=== PATIENT | female | born 1955 | race Caucasian/White ===

== ENCOUNTER → 2016-11-25 | Outpatient (REF) | payer OTHER ==
[~2016-11-25] MED LIST: BIOTPOW20; CALCTAB97 PO; CIPR500T4; CLON-412 PO; EFFE150C; EFFE150C PO; FERR325T3 PO; FLAG500T; GABA-283 PO; GABA600T PO; GEMF600T PO; LISI20TA5; LOSA25TA8 PO; MAGN500C PO; MELA10TA4 PO; METF500T PO; METO10TA2; MORP15TA2 PO; MULT1TAB10 PO; MULTIVIT; OMEP20CA3 PO; OXYCO5TA PO; RELP40TA PO; RELPAX; REST0.05 OU; ROXICODONE; TRAZ50TA4 PO; VITA100066 PO; VITAMIN D; gabapentin OR; restasis OU; vitamin d OR
== END ==
LOC: M SFHCLERA 13:21
PROVIDERS: ATTEND Physician Assistant
DX: A09 Infectious gastroenteritis and colitis, unspecified (principal)

== ENCOUNTER → 2016-11-25 | Outpatient (CLI) | payer BC, OTHER ==
--- NOTE | 2016-11-25 17:00 | REP ---
CHEST, TWO VIEWS: Two views of the chest are performed and compared to prior study of 05/04/2015. There is significant elevation of the right hemidiaphragm unchanged. There is mild bibasilar fibro atelectatic change. There is no acute infiltrate. The heart is not significantly enlarged. The mediastinal silhouette is unchanged. There are bilateral Garcia rods present. There are multiple pedicle screws. IMPRESSION: No acute infiltrate. Signed by Romero Doyle MD 11/26/2016 05:10 P
== END ==
LOC: M LRY 12:32
PROVIDERS: ATTEND Physician Assistant
DX: R05 Cough (principal)

== ENCOUNTER 2017-03-19 18:31 | Emergency (ER) | payer BC, OTHER ==
[~2017-03-19] VITALS: Ht 165.1 cm; Wt 79.8 kg
[~2017-03-19 18:31] MED LIST changes: -ATOR1TAB19 PO; -OMEP40CA2 PO; -TIZA2CAP3 PO
[2017-03-19] MEDS ORDERED: ATOR1TAB19 PO (18:50)
[2017-03-19] MEDS ORDERED: TIZA2CAP3 PO (18:50)
[2017-03-19] MEDS ORDERED: OMEP40CA2 PO (18:50)
[2017-03-19] MEDS ORDERED: cloNIDine 0.1 MG TAB PO ONE (19:30)
[2017-03-19 19:55] VITALS: BP 188/90
[2017-03-19 20:24] LABS: BASO % 0.5 % (0.0-1.0); EOS # 0.4 K/mm3 (0.0-0.50); LARGE UNSTAINED CELL # 0.1 K/mm3 (0.0-0.4); LARGE UNSTAINED CELL % 1.6 % (0.0-4.0); LYMPH # 2.1 K/mm3 (1.5-4.5); LYMPH % 23.8 % (24.0-44.0); MEAN CORPUSCULAR HEMOGLOBIN 30.6 pg (27.0-33.0); MEAN CORPUSCULAR VOLUME 85.1 fl (80.0-96.0); MONO # 0.5 K/mm3 (0.0-0.8); MONO % 5.5 % (0.0-5.0); NEUTROPHILS # 5.5 K/mm3 (1.8-7.7); NEUTROPHILS % 63.7 % (36.0-66.0); PLATELET COUNT, AUTOMATED 270 k/mm3 (150-450); RED CELL DISTRIBUTION WIDTH 13.9 % (11.5-14.5); WHITE BLOOD COUNT 8.7 K/mm3 (4.0-10.0)
[2017-03-19 20:36] LABS: ANION GAP 7 MEQ/L (8-16); BLOOD UREA NITROGEN 16 MG/DL (7-18); CARBON DIOXIDE LEVEL 30 MEQ/L (21-32); CHLORIDE LEVEL 105 MEQ/L (98-107); CREATININE FOR GFR 0.77 MG/DL (0.55-1.02); GLOMERULAR FILTRATION RATE > 60.0 (>51); GLUCOSE, FASTING 105 MG/DL (70-105); POTASSIUM SERUM 4.2 MEQ/L (3.5-5.1); SODIUM LEVEL 142 MEQ/L (136-145)
--- NOTE | 2017-03-19 21:16 | REP ---
Clinical: Hypertensive emergency. Comparison: 09/10/2007. Findings: Age-related changes are appreciated including dense extra-axial parafalcine calcifications. The ventricles and sulci are symmetric. Doyle-white differentiation is maintained. There is no evidence for acute intracranial hemorrhage, mass/mass effect, pathology or infarction. No extra-axial fluid collection. Calvarium is intact. Paranasal sinuses and mastoid air cells are clear. Impression: Age related changes. No acute intracranial hemorrhage, infarction, or mass/mass effect. Signed by Johnathon Alba MD 03/19/2017 09:07 P
[2017-03-19 21:52] VITALS: BP 147/74
--- NOTE | 2017-03-20 04:29 | REP ---
Clinical: Chest pain . Comparison: 11/25/2016 . Findings: The mediastinum and cardiac silhouette are stable and within normal limits for portable technique. Garcia rods in stable position. The lung martinez are clear without acute consolidation, effusion, or pneumothorax. Skeletal structures are intact. Impression: Stable portable chest x-ray. No acute cardiopulmonary process. Signed by Johnathon Alba MD 03/20/2017 04:20 A
--- NOTE | 2017-03-21 08:38 | ECGEPIP ---
Stationary ECG Study [facility] - ED Test Date: 2017-03-19 Pat Name: RAYNE MANZO Department: Room: - Gender: F Outside Upholsterer: ruth ann : 1955 Requested By: AMARI Arredondo Order Number: [id number] Reading MD: Iliana Fischer Measurements Intervals [place] Rate: 67 P: 9 VT: 136 QRS: -8 QRSD: 82 T: 11 QT: 379 QTc: 402 Interpretive Statements SINUS RHYTHM MODERATE VOLTAGE CRITERIA FOR LVH, CONSIDER NORMAL VARIANT NSTTW ABNORMALITY SIMILAR 09/05/16 Electronically Signed On 03-21-2017 8:37:53 EDT by Iliana Fischer
== END 2017-03-19 21:54 | disposition home or self-care (01) ==
LOC: M ED 19:30
DX: I10 Essential (primary) hypertension (principal); R07.89 Other chest pain; Z79.899 Other long term (current) drug therapy; Z79.84 Long term (current) use of oral hypoglycemic drugs; Z87.891 Personal history of nicotine dependence; E78.00 Pure hypercholesterolemia, unspecified; Z98.84 Bariatric surgery status; E11.9 Type 2 diabetes mellitus without complications; M54.9 Dorsalgia, unspecified

== ENCOUNTER → 2017-03-19 | Outpatient (REF) | payer OTHER ==
[~2017-03-19] MED LIST changes: +ATOR1TAB19 PO; +OMEP40CA2 PO; +OXYC-517 PO; -OXYCO5TA PO; +TIZA2CAP3 PO
== END ==
LOC: M SFHCLERA 17:29
PROVIDERS: ATTEND Nurse Practitioner Family
DX: R30.0 Dysuria (principal)

== ENCOUNTER 2017-03-25 23:06 | Emergency (ER) | payer BC, OTHER ==
[~2017-03-25] VITALS: Ht 165.1 cm; Wt 80.7 kg
[~2017-03-25 23:06] MED LIST changes: +ATOR1TAB19 PO; +OMEP40CA2 PO; +TIZA2CAP3 PO
[2017-03-25] MEDS ORDERED: CIPR500T89 PO (23:45)
[2017-03-26] LABS: BASO % 0.7 % (0.0-1.0); EOS # 0.3 K/mm3 (0.0-0.50); EOS % 3.6 % (0.0-3.0); LARGE UNSTAINED CELL # 0.1 K/mm3 (0.0-0.4); LARGE UNSTAINED CELL % 1.6 % (0.0-4.0); LYMPH # 2.7 K/mm3 (1.5-4.5); LYMPH % 34.4 % (24.0-44.0); MEAN CORPUSCULAR HEMOGLOBIN 28.1 pg (27.0-33.0); MEAN CORPUSCULAR HGB CONC 33.2 g/dl (32.0-36.5); MEAN CORPUSCULAR VOLUME 84.5 fl (80.0-96.0); MONO # 0.4 K/mm3 (0.0-0.8); MONO % 5.1 % (0.0-5.0); NEUTROPHILS # 4.2 K/mm3 (1.8-7.7); NEUTROPHILS % 54.5 % (36.0-66.0); PLATELET COUNT, AUTOMATED 291 k/mm3 (150-450); RED CELL DISTRIBUTION WIDTH 13.7 % (11.5-14.5); WHITE BLOOD COUNT 7.6 K/mm3 (4.0-10.0)
[2017-03-26] MEDS ORDERED: ASPIRIN 325 MG TAB PO ONE
[2017-03-26] MEDS ORDERED: MORPHINE 2 MG/ML 1ML SYRINGE IV ONE
[2017-03-26 00:09] LABS: INR 1.01
[2017-03-26 00:26] LABS: ANION GAP 5 MEQ/L (8-16); BLOOD UREA NITROGEN 14 MG/DL (7-18); CALCIUM LEVEL 9.4 MG/DL (8.5-10.1); CARBON DIOXIDE LEVEL 33 MEQ/L (21-32); CHLORIDE LEVEL 101 MEQ/L (98-107); CREATININE FOR GFR 0.86 MG/DL (0.55-1.02); GLOMERULAR FILTRATION RATE > 60.0 (>51); GLUCOSE, FASTING 113 MG/DL (70-105); POTASSIUM SERUM 4.7 MEQ/L (3.5-5.1); SODIUM LEVEL 139 MEQ/L (136-145)
--- NOTE | 2017-03-26 01:50 | REPUSA ---
CLINICAL HISTORY: Chest tightness. TECHNIQUE: Multiple axial CT images were obtained through the thorax without IV contrast material. COMMENTS: Elevation of the right hemidiaphragm. Bilateral peribronchial interstitial thickening suggestive of bronchitis. Chronic increase in dorsal kyphosis. Moderate osteopenia of the visualized bones. Unremarkable metallic hardware of the thoracic spine. Bilateral basilar atelectatic pulmonary changes. There is no evidence of pleural or parenchymal-based mass. There are no pleural effusions. There is n o evidence of hilar or mediastinal lymphadenopathy. The heart and great vessels are within normal basilio its. The visualized portions of the liver are of uniform attenuation without mass or defect. There is no i ntra or extrahepatic biliary ductal dilatation. The spleen is unremarkable. The visualized pancreas i s of normal contour and attenuation characteristics. There is no evidence of adrenal mass. The visual ized portions of the kidneys present no abnormalities. The bony structures are free of lytic or blastic lesions. Mildly dilated extrahepatic biliary tree. IMPRESSION: Bronchitis. Basilar atelectatic pulmonary changes. Elevation of the right hemidiaphragm. Increased dorsal kyphosis. Unremarkable metallic hardware of the thoracic spine. Thank you for your kind referral of this patient.
--- NOTE | 2017-03-26 02:04 | REP ---
Clinical: Chest pain. Comparison: 03/19/2017. Findings: Garcia rods in stable position. Elevation of the right hemidiaphragm is unchanged. Mediastinum and cardiac silhouette are within normal limits. Visualized aerated lung martinez are clear. Impression: Stable chest x-ray. No acute cardiopulmonary process appreciated. Signed by Johnathon Alba MD 03/26/2017 01:56 A
[2017-03-26 04:44] VITALS: BP 109/58
[2017-03-26] MEDS ORDERED: ASPI81TA85 PO (04:46)
--- NOTE | 2017-03-26 05:55 | ECGEPIP ---
Stationary ECG Study [facility] - ED Test Date: 2017-03-25 Pat Name: RAYNE MANZO Department: Room: - Gender: F Desulphurizer Operator: ruth ann : 1955 Requested By: LANI HERNANDEZ Order Number: [id number] Reading MD: Gómez Otto Measurements Intervals [place] Rate: 74 P: -1 [place]: 128 QRS: -9 QRSD: 92 T: 10 QT: 400 QTc: 445 Interpretive Statements SINUS RHYTHM MODERATE VOLTAGE CRITERIA FOR LVH, CONSIDER NORMAL VARIANT SIMILAR TO 03/19/17 Electronically Signed On 03-26-2017 5:55:35 EDT by Gómez Otto
--- NOTE | 2017-03-26 10:11 | ECGEPIP ---
Stationary ECG Study [facility] - ED Test Date: 2017-03-26 Pat Name: RAYNE MANZO Department: Room: - Gender: F Occupational Health Nurse: ruth ann : 1955 Requested By: LANI HERNANDEZ Order Number: [id number] Reading MD: Iliana Fischer Measurements Intervals [place] Rate: 59 P: 0 [place]: 144 QRS: -9 QRSD: 79 T: -7 QT: 451 QTc: 449 Interpretive Statements SINUS BRADYCARDIA MINIMAL VOLTAGE CRITERIA FOR LVH, CONSIDER NORMAL VARIANT NSTTW ABNORMALITY DECREASED RATE 03/25/17 Electronically Signed On 03-26-2017 10:11:05 EDT by Iliana Fischer
== END 2017-03-26 04:57 | disposition home or self-care (01) ==
LOC: M ED 23:23
DX: J20.9 Acute bronchitis, unspecified (principal); R07.89 Other chest pain; I10 Essential (primary) hypertension; F32.9 Major depressive disorder, single episode, unspecified; Z79.899 Other long term (current) drug therapy; Z88.6 Allergy status to analgesic agent; Z88.8 Allergy status to other drugs, medicaments and biological substances; Z91.040 Latex allergy status; Z91.041 Radiographic dye allergy status

== ENCOUNTER → 2017-03-31 | Outpatient (REF) | payer OTHER ==
[~2017-03-31] MED LIST changes: +ASPI81TA85 PO; +CIPR500T89 PO
[2017-03-31 15:52] LABS: BACTERIA, URINE SMALL AMOUNT; MICROSCOPIC EXAM PERFORMED; SQUAMOUS EPITHELIAL CELL URINE SMALL AMOUNT /hpf (SMALL AMT)
[2017-03-31 20:13] LABS: HYALINE CAST, URINE NONE SEEN /lpf (0-1)
== END ==
LOC: M SMT 12:51
PROVIDERS: ATTEND Specialist
DX: N39.0 Urinary tract infection, site not specified (principal)

== ENCOUNTER 2017-06-20 21:43 | Emergency (ER) | payer BC, OTHER ==
[~2017-06-20] VITALS: Ht 165.1 cm; Wt 76.4 kg
[~2017-06-20 21:43] MED LIST changes: +CIPR-249 PO; -CIPR500T89 PO; -METF500T PO; +METF500T13 PO; +TRAZ50TA11 PO; -TRAZ50TA4 PO
[2017-06-20] MEDS ORDERED: AMLO5TAB2 PO (21:56)
[2017-06-20] MEDS ORDERED: FORT600S SC (21:56)
[2017-06-20] MEDS ORDERED: CARV6.25 PO (21:56)
[2017-06-20] MEDS ORDERED: ACETAMINOPH W/CODEINE #3 TAB UD PO ONE (22:15)
[2017-06-20] MEDS ORDERED: PERCOCET 5MG/325MG TAB PO ONE (23:45)
[2017-06-21 00:28] VITALS: BP 107/53
--- NOTE | 2017-06-21 09:39 | REP ---
REASON: Pain after trauma. A sunrise view could not be obtained. COMPARISON: 10/03/2012 There are chronic changes status quo. There is no acute fracture. Signed by Ryan Vargas DO 06/21/2017 10:16 A
--- NOTE | 2017-06-21 09:40 | REP ---
REASON: Pain after trauma. COMPARISON: 03/15/2011 There is a nondisplaced distal fibular fracture with associated soft tissue swelling. The bones are demineralized. There are plantar and retrocalcaneal heel spurs. IMPRESSION: Distal fibular fracture and other findings as described above. Signed by Ryan Vargas DO 06/21/2017 10:16 A
--- NOTE | 2017-06-21 09:42 | REP ---
REASON: Pain after trauma. COMPARISON: 06/14/2015 There are chronic changes status quo. The bones are demineralized. There is no acute fracture. Signed by Ryan Vargas DO 06/21/2017 10:16 A
--- NOTE | 2017-06-21 09:43 | REP ---
REASON: Pain after trauma. COMPARISON: 03/15/2011 The bones are demineralized. There are degenerative changes. There are plantar and retrocalcaneal heel spurs. There is no acute fracture. Signed by Ryan Vargas DO 06/21/2017 10:16 A
== END 2017-06-21 00:30 | disposition home or self-care (01) ==
LOC: M ED 21:43
DX: S82.831A Other fracture of upper and lower end of right fibula, initial encounter for closed fracture (principal); W19.XXXA Unspecified fall, initial encounter; Y92.9 Unspecified place or not applicable; Y93.9 Activity, unspecified; Y99.9 Unspecified external cause status; M85.872 Other specified disorders of bone density and structure, left ankle and foot; M77.31 Calcaneal spur, right foot; M85.861 Other specified disorders of bone density and structure, right lower leg; M85.871 Other specified disorders of bone density and structure, right ankle and foot; M77.32 Calcaneal spur, left foot; Z79.82 Long term (current) use of aspirin; Z79.899 Other long term (current) drug therapy; Z79.84 Long term (current) use of oral hypoglycemic drugs; Z88.1 Allergy status to other antibiotic agents; Z88.6 Allergy status to analgesic agent; Z88.8 Allergy status to other drugs, medicaments and biological substances; Z91.041 Radiographic dye allergy status; Z91.040 Latex allergy status

== ENCOUNTER → 2018-01-22 | Outpatient (CLI) | payer MEDICARE, OTHER, BC ==
[2018-01-22 16:59] LABS: BASO % 0.8 % (0.0-1.0); EOS # 0.2 10^3/uL (0.0-0.50); EOS % 3.3 % (0.0-3.0); HEMATOCRIT 35.8 % (36.0-47.0); HEMOGLOBIN 11.8 g/dl (12.0-16.0); IMMATURE GRANULOCYTE % 0.4 % (0-3.0); LYMPH # 1.8 10^3/uL (1.5-4.5); LYMPH % 37.2 % (24.0-44.0); MEAN CORPUSCULAR HEMOGLOBIN 28.8 pg (27.0-33.0); MEAN CORPUSCULAR VOLUME 87.3 fl (80.0-96.0); MONO # 0.4 10^3/uL (0.0-0.8); MONO % 7.8 % (0.0-5.0); NEUTROPHILS # 2.5 10^3/uL (1.8-7.7); NEUTROPHILS % 50.5 % (36.0-66.0); PLATELET COUNT, AUTOMATED 294 10^3/uL (150-450); RED CELL DISTRIBUTION WIDTH 13.2 % (11.5-14.5); WHITE BLOOD COUNT 4.9 10^3/uL (4.0-10.0)
[2018-01-22 17:37] LABS: FERRITIN 71 NG/ML (8-252); IRON (FE) 71 UG/DL (50-170); PERCENT SATURATION 19.7 % (13.2-45.0); TOTAL IRON BINDING CAPACITY 360 UG/DL (250-450)
[2018-01-22 17:40] LABS: FOLATE > 24.0 NG/ML; VITAMIN B12 LEVEL > 2000 PG/ML
== END ==
LOC: M WUC 11:00
DX: D64.9 Anemia, unspecified (principal)
CPT/HCPCS: 82746

== ENCOUNTER → 2018-05-09 | Outpatient (CLI) | payer MEDICARE, OTHER, BC | LOC: M LRY 15:12 | DX: J98.01 Acute bronchospasm (principal) | CPT/HCPCS: 71046; 94640 ==

== ENCOUNTER → 2018-08-27 | Outpatient (CLI) | payer MEDICARE, OTHER, BC | LOC: M LAB 09:25 | DX: R10.11 Right upper quadrant pain (principal); R19.7 Diarrhea, unspecified | CPT/HCPCS: 36415 ==

== ENCOUNTER 2018-12-12 23:27 | Emergency (ER) | payer MEDICARE, BC, OTHER ==
[~2018-12-12] VITALS: Ht 165.1 cm; Wt 70.5 kg
[~2018-12-12 23:27] MED LIST changes: +AMLO5TAB6 PO; +CARV6.25 PO; -EFFE150C PO; +EFFE150C2 PO; +FENT12PA TOP; +FORT600S SC; -GABA-283 PO; +GABA-845 PO; -GABA600T PO; +GABA600T4 PO; -GEMF600T PO; +GEMF600T5 PO; +LOSA25TA14 PO; -LOSA25TA8 PO; +NORCOTAB PO; +TIZA2CAP PO; -TIZA2CAP3 PO; +TRAZ-160 PO; -TRAZ50TA11 PO
--- NOTE | 2018-12-13 00:03 | REPVR ---
EXAM: CT Head Without Contrast EXAM DATE/TIME: 12/12/2018 11:44 PM CLINICAL HISTORY: 63 years old, female; Injury or trauma; Fall; Initial encounter; Concussion / head injury; Additional info: Tr TECHNIQUE: Axial computed tomography images of the head/brain without contrast. All CT scans at this facility use at least one of these dose optimization techniques: automated exposure control; mA and/or kV adjustment per patient size (includes targeted exams where dose is matched to clinical indication); or iterative reconstruction. COMPARISON: CT Head without contrast 11/22/2018 3:27 PM FINDINGS: Brain: There is no evidence of infarct, falk-white matter differentiation is preserved. There is no hemorrhage or extra-axial collection. There is no mass. Ventricles: There is no hydrocephalus. Bones/joints: Normal. No acute fracture. Sinuses: Normal as visualized. No acute sinusitis. Mastoid air cells: Normal as visualized. No mastoid effusion. Soft tissues: Normal. Vasculature: There is right temporal attenuation artifact. IMPRESSION: No intracranial injury or lesion and no change from prior scan. Electronically signed by: Kade Lee On 12/13/2018 00:03:18 AM
--- NOTE | 2018-12-13 00:08 | REPVR ---
EXAM: CT Cervical Spine Without Contrast EXAM DATE/TIME: 12/12/2018 11:44 PM CLINICAL HISTORY: 63 years old, female; Injury or trauma; Fall; Initial encounter; Concussion /head injury; Additional info: Tr TECHNIQUE: Axial computed tomography images of the cervical spine without intravenous contrast. All CT scans at this facility use at least one of these dose optimization techniques: automated exposure control; mA and/or kV adjustment per patient size (includes targeted exams where dose is matched to clinical indication); or iterative reconstruction. Coronal and sagittal reformatted images were created and reviewed. COMPARISON: No relevant prior studies available. FINDINGS: Vertebrae: There is no fracture. Vertebral alignment is normal. A posterior fusion in the upper thoracic spine is partly visualized with spinal rods and screws. Discs/Spinal canal/Neural foramina: There is no central or foraminal stenosis. There is no evidence of disc disease in the cervical spine. Soft tissues: Unremarkable. Lungs: Lung apices are normal. IMPRESSION: No fracture. Electronically signed by: Kade Lee On 12/13/2018 00:08:51 AM
[2018-12-13] MEDS ORDERED: NORCO, ANEXSIA 5/325MG TABLET (HYDROcodone/ACETAMINOPHEN) PO ONE (00:15)
[2018-12-13 01:00] VITALS: BP 96/55
--- NOTE | 2018-12-13 09:27 | REP ---
PELVIS RIGHT HIP: Three views. HISTORY: Trauma. FINDINGS: The patient is status post right hip arthroplasty. There is diffuse osteopenia. Lumbosacral spine fusion hardware is noted in place bilaterally. Laminectomy is visible at L5 at the top of the imaging field of view. There is peritrochanteric spurring bilaterally. No fracture is seen. IMPRESSION: Status post lumbosacral spine fusion and right hip arthroplasty. No traumatic abnormality. Electronically Signed by Miguel Rivera MD 12/13/2018 10:39 A
== END 2018-12-13 01:43 | disposition home or self-care (01) ==
LOC: M ED 23:27
DX: S16.1XXA Strain of muscle, fascia and tendon at neck level, initial encounter (principal); S76.011A Strain of muscle, fascia and tendon of right hip, initial encounter; S00.81XA Abrasion of other part of head, initial encounter; W10.8XXA Fall (on) (from) other stairs and steps, initial encounter; Y92.018 Other place in single-family (private) house as the place of occurrence of the external cause; I10 Essential (primary) hypertension; E11.9 Type 2 diabetes mellitus without complications; K21.9 Gastro-esophageal reflux disease without esophagitis; E78.5 Hyperlipidemia, unspecified; Z79.899 Other long term (current) drug therapy; Z79.84 Long term (current) use of oral hypoglycemic drugs; Z79.82 Long term (current) use of aspirin; Z88.8 Allergy status to other drugs, medicaments and biological substances; Z91.040 Latex allergy status; Z91.041 Radiographic dye allergy status

== ENCOUNTER → 2018-12-16 | Outpatient (CLI) | payer MEDICARE, BC, OTHER | LOC: M LAB 12:52 | PROVIDERS: ATTEND Nurse Practitioner Family | DX: K50.00 Crohn's disease of small intestine without complications (principal); R94.5 Abnormal results of liver function studies; K76.0 Fatty (change of) liver, not elsewhere classified ==

== ENCOUNTER 2019-02-10 22:33 | Emergency (ER) | payer MEDICARE, BC, OTHER ==
[~2019-02-10] VITALS: Ht 165.1 cm; Wt 70.5 kg
[~2019-02-10 22:33] MED LIST changes: +FENT12DI12 TOP; -FENT12PA TOP; +HYDR-3715 PO; -NORCOTAB PO
[2019-02-10] MEDS ORDERED: NALOXONE INJ 0.4 MG/1 ML VIAL (J2310) IV STA ×2 (22:50→23:48)
[2019-02-10] MEDS ORDERED: NS 1,000 ML IV ONE (23:00)
[2019-02-10 23:37] LABS: BASO # 0.1 10^3/uL (0.0-0.2); BASO % 0.8 % (0.0-1.0); EOS # 0.2 10^3/uL (0.0-0.50); EOS % 2.7 % (0.0-3.0); HEMATOCRIT 35.1 % (36.0-47.0); HEMOGLOBIN 11.2 g/dl (12.0-15.5); LYMPH # 2.4 10^3/uL (1.5-4.5); LYMPH % 33.2 % (24.0-44.0); MEAN CORPUSCULAR HEMOGLOBIN 27.9 pg (27.0-33.0); MEAN CORPUSCULAR HGB CONC 31.9 g/dl (32.0-36.5); MEAN CORPUSCULAR VOLUME 87.5 fl (80.0-96.0); MONO # 0.5 10^3/uL (0.0-0.8); MONO % 6.4 % (0.0-5.0); NEUTROPHILS # 4.1 10^3/uL (1.8-7.7); NEUTROPHILS % 56.2 % (36.0-66.0); PLATELET COUNT, AUTOMATED 251 10^3/uL (150-450); RED BLOOD COUNT 4.01 10^6/uL (4.00-5.40); WHITE BLOOD COUNT 7.4 10^3/uL (4.0-10.0)
[2019-02-11 00:13] LABS: ALBUMIN 3.5 GM/DL (3.2-5.2); ALT/SGPT 25 U/L (12-78); BILIRUBIN,DIRECT < 0.1 MG/DL (0.0-0.2); BILIRUBIN,TOTAL 0.2 MG/DL (0.2-1.0); BLOOD UREA NITROGEN 29 MG/DL (7-18); CALCIUM LEVEL 8.7 MG/DL (8.8-10.2); CARBON DIOXIDE LEVEL 27 MEQ/L (21-32); CHLORIDE LEVEL 104 MEQ/L (98-107); CPK CREATINE PHOSPHOKINASE 57 U/L (26-192); CREATININE FOR GFR 1.44 MG/DL (0.55-1.30); GLOMERULAR FILTRATION RATE 39.4 (>45); GLUCOSE, FASTING 146 MG/DL (70-100); MB/CK RELATIVE INDEX 7.19 (< OR =4); POTASSIUM SERUM 4.2 MEQ/L (3.5-5.1); SODIUM LEVEL 141 MEQ/L (136-145); TOTAL PROTEIN 6.6 GM/DL (6.4-8.2); TROPONIN I < 0.02 NG/ML (< 0.10)
[2019-02-11] MEDS ORDERED: NALOXONE INJ 2 MG/2 ML SYRINGE (J2310) IM STA (00:51)
[2019-02-11] MEDS ORDERED: NS 1,000 ML IV ONE (01:00)
[2019-02-11 02:06] VITALS: BP 98/53
--- NOTE | 2019-02-11 06:39 | ECGEPIP ---
Stationary ECG Study [facility] - ED Test Date: 2019-02-10 Pat Name: RAYNE MANZO Department: Room: - Gender: F Hog Driver: GT : 1955 Requested By: LANI HERNANDEZ Order Number: [id number] Reading MD: Gómez Otto Measurements Intervals [place] Rate: 80 P: 0 SC: 159 QRS: -12 QRSD: 94 T: -1 QT: 412 QTc: 477 Interpretive Statements SINUS RHYTHM MINIMAL VOLTAGE CRITERIA FOR LVH, CONSIDER NORMAL VARIANT NSTTW ABNORMALITIES SIMILAR TO 11/22/18 Electronically Signed On 02-11-2019 6:38:42 EDT by Gómez Otto
== END 2019-02-11 02:08 | disposition home or self-care (01) ==
LOC: M ED 22:33
DX: T40.601A Poisoning by unspecified narcotics, accidental (unintentional), initial encounter (principal); X58.XXXA Exposure to other specified factors, initial encounter; Y92.89 Other specified places as the place of occurrence of the external cause; I95.2 Hypotension due to drugs; Z91.041 Radiographic dye allergy status; Z88.8 Allergy status to other drugs, medicaments and biological substances; Z91.040 Latex allergy status; Z79.899 Other long term (current) drug therapy; Z79.82 Long term (current) use of aspirin
CPT/HCPCS: 36415; 80048; 80076; 82550; 82553; 84443; 84484; 85025; 93005; 93041; 94760; 96361; 96372; 96374; 96376; 99285; J2310

== ENCOUNTER → 2020-09-24 | Outpatient (REF) | payer MEDICARE, BC, OTHER ==
[~2020-09-24] MED LIST changes: +AMLO1TAB24 PO; -AMLO5TAB6 PO; -ASPI81TA85 PO; +ASPI81TA86 PO; +OMEP1CAP73 PO; -OMEP20CA3 PO; -OMEP40CA2 PO; +OMEP40CA97 PO; -TRAZ-160 PO; +TRAZ-252 PO
== END ==
LOC: M LAB REF 16:39
PROVIDERS: ATTEND Physician Assistant
DX: R10.32 Left lower quadrant pain (principal)

== ENCOUNTER → 2021-01-05 | Outpatient (CLI) | payer MEDICARE, BC, OTHER | LOC: M LABSMTC 10:11 | PROVIDERS: ATTEND Nurse Practitioner Family | DX: Z01.812 Encounter for preprocedural laboratory examination (principal); Z20.822 Contact with and (suspected) exposure to COVID-19; M51.24 Other intervertebral disc displacement, thoracic region ==

== ENCOUNTER 2021-02-01 13:54 | Emergency (ER) | payer MEDICARE, BC, OTHER ==
[~2021-02-01] VITALS: Ht 160 cm; Wt 82.0 kg
[2021-02-01 14:31] LABS: BASO % 0.6 % (0.0-1.0); EOS # 0.3 10^3/uL (0.0-0.5); EOS % 4.2 % (0.0-3.0); HEMATOCRIT 32.3 % (36.0-47.0); LYMPH # 1.7 10^3/uL (1.5-5.0); LYMPH % 25.5 % (24.0-44.0); MEAN CORPUSCULAR HEMOGLOBIN 24.8 pg (27.0-33.0); MEAN CORPUSCULAR VOLUME 80.1 fl (80.0-96.0); MONO # 0.5 10^3/uL (0.0-0.8); MONO % 7.2 % (2.0-8.0); NEUTROPHILS # 4.1 10^3/uL (1.5-8.5); NEUTROPHILS % 62.2 % (36.0-66.0); PLATELET COUNT, AUTOMATED 288 10^3/uL (150-450); RED BLOOD COUNT 4.03 10^6/uL (4.00-5.40); WHITE BLOOD COUNT 6.6 10^3/uL (4.0-10.0)
[2021-02-01 14:42] LABS: INR 0.91; PROTHROMBIN TIME 12.4 SECONDS (12.5-14.3)
--- NOTE | 2021-02-01 14:47 | REP ---
INDICATION: blurred vision COMPARISON: 12/12/2018 TECHNIQUE: Axial noncontrast images from the skull base to the thoracic inlet with coronal reformations. This CT examination was performed using the following dose reduction techniques: Automated exposure control, adjustment of mA and/or kv according to the patient's size, and use of iterative reconstruction technique. FINDINGS: Age-related atrophy and microvascular ischemic changes are again appreciated and similar to prior examination. The ventricles and sulci are symmetric. Doyle-white differentiation is maintained. There is no evidence for acute intracranial hemorrhage, mass/mass effect, pathology or infarction. No extra-axial fluid collection. Calvarium is intact. Paranasal sinuses and mastoid air cells are clear. IMPRESSION: Age related atrophy and microvascular ischemic changes similar to prior examination. No acute intracranial hemorrhage, infarction, or mass/mass effect. <Electronically signed by Johnathon Alba > 02/01/21 [id number]
[2021-02-01] MEDS ORDERED: LOSA50TA88 PO (15:01)
[2021-02-01] MEDS ORDERED: METF10004 PO (15:01)
[2021-02-01] MEDS ORDERED: TRUL0.5I SC (15:01)
[2021-02-01] MEDS ORDERED: LOMO2.5T PO (15:01)
[2021-02-01] MEDS ORDERED: OMEP40CA97 PO (15:01)
[2021-02-01] MEDS ORDERED: VITAE40CA PO (15:01)
[2021-02-01] MEDS ORDERED: ROPI2TAB24 PO (15:01)
[2021-02-01] MEDS ORDERED: potassium PO (15:01)
[2021-02-01] MEDS ORDERED: FAMO20TA PO (15:01)
[2021-02-01] MEDS ORDERED: BACL10TA2 PO (15:01)
[2021-02-01] MEDS ORDERED: RECL5INJ2 IV (15:01)
[2021-02-01] MEDS ORDERED: COLE1TAB PO (15:01)
[2021-02-01] MEDS ORDERED: CALCCAP4 PO (15:01)
[2021-02-01] MEDS ORDERED: PREG100CA PO (15:01)
[2021-02-01] MEDS ORDERED: PENT500C PO (15:01)
[2021-02-01] MEDS ORDERED: HYOS0.1259 PO (15:01)
[2021-02-01] MEDS ORDERED: BLAC1CAP2 PO (15:01)
[2021-02-01] MEDS ORDERED: TRAZ-252 PO (15:01)
[2021-02-01] MEDS ORDERED: CYMB60CA3 PO (15:01)
[2021-02-01] MEDS ORDERED: OXYC-517 PO (15:01)
[2021-02-01 15:09] LABS: BLOOD UREA NITROGEN 20 MG/DL (7-18); CALCIUM LEVEL 8.9 MG/DL (8.8-10.2); CARBON DIOXIDE LEVEL 28 MEQ/L (21-32); CHLORIDE LEVEL 109 MEQ/L (98-107); CK-MB VALUE MASS 5.6 NG/ML (<3.6); CPK CREATINE PHOSPHOKINASE 49 U/L (26-192); CREATININE FOR GFR 0.88 MG/DL (0.55-1.30); GLOMERULAR FILTRATION RATE > 60.0 (>45); GLUCOSE, FASTING 125 MG/DL (70-100); MB/CK RELATIVE INDEX 11.43 (< OR =4); POTASSIUM SERUM 4.4 MEQ/L (3.5-5.1); SODIUM LEVEL 140 MEQ/L (136-145); TROPONIN I < 0.02 NG/ML (< 0.10)
[2021-02-01] MEDS ORDERED: LOSA25TA14 PO (16:33)
[2021-02-01 16:53] VITALS: BP 129/58
--- NOTE | 2021-02-01 18:52 | ECGEPIP ---
[facility] - ED Test Date: 2021-02-01 Pat Name: RAYNE MANZO Department: Room: - Gender: Female Reel Stripper: KISHORE : 1955 Requested By: Dannie Frausto Order Number: [id number] Reading MD: Iliana Fischer Measurements Intervals [place] Rate: 78 P: 3 MD: 134 QRS: -12 QRSD: 80 T: 16 QT: 376 QTc: 428 Interpretive Statements Normal sinus rhythm NSTTW abnormalities similar 02/10/19 Electronically Signed on 02-01-2021 18:51:57 EST by Iliana Fischer
== END 2021-02-01 17:14 | disposition home or self-care (01) ==
LOC: M ED 13:54
DX: I10 Essential (primary) hypertension (principal); H53.9 Unspecified visual disturbance; E11.9 Type 2 diabetes mellitus without complications; K21.9 Gastro-esophageal reflux disease without esophagitis; G89.29 Other chronic pain; Z98.84 Bariatric surgery status; G31.1 Senile degeneration of brain, not elsewhere classified; I67.82 Cerebral ischemia; Z79.82 Long term (current) use of aspirin; Z79.84 Long term (current) use of oral hypoglycemic drugs; Z79.899 Other long term (current) drug therapy; Z91.040 Latex allergy status; Z91.041 Radiographic dye allergy status; Z88.6 Allergy status to analgesic agent; Z88.8 Allergy status to other drugs, medicaments and biological substances

== ENCOUNTER → 2021-02-14 | Outpatient (CLI) | payer MEDICARE, BC, OTHER ==
[~2021-02-14] MED LIST changes: +BACL10TA2 PO; +BLAC1CAP2 PO; +CALCCAP4 PO; +COLE1TAB PO; +CYMB60CA3 PO; +FAMO20TA PO; +HYOS0.1259 PO; +LOMO2.5T PO; +LOSA50TA88 PO; +METF10004 PO; +PENT500C PO; +PREG100CA PO; +RECL5INJ2 IV; +ROPI2TAB24 PO; +TRUL0.5I SC; +VITAE40CA PO; +potassium PO
--- NOTE | 2021-02-14 16:05 | REP ---
INDICATION: ESSENTIAL PRIMARY HYPERTENSION COMPARISON: None. TECHNIQUE: Real-time ultrasound evaluation and duplex Doppler interrogation of the extracranial carotid vasculature is performed. FINDINGS: There is mild plaquing and narrowing in both carotid bulbs extending into the internal and external carotid arteries. Luminal narrowing is less than 50%. There is no evidence of hemodynamically significant stenosis of either internal carotid artery. Normal flow velocities are seen. The vertebral arteries demonstrate normal direction of flow. RIGHT LEFT Peak systolic velocity ICA 88 cm/s 111 cm/s End diastolic velocity ICA 35 cm/s 44 cm/s Peak systolic velocity CCA 83 cm/s 91cm/s Peak systolic velocity ECA 81 cm/s 62 cm/s ICA/CCA ratio 1.06 1.21 IMPRESSION: Bilateral luminal narrowing of the internal carotid arteries less than 50%. No evidence of hemodynamically significant stenosis. <Electronically signed by Romero Doyle > 02/14/21 [id number]
== END ==
LOC: M RAD 15:07
PROVIDERS: ATTEND Physician Assistant
DX: I10 Essential (primary) hypertension (principal); I65.23 Occlusion and stenosis of bilateral carotid arteries

== ENCOUNTER → 2021-02-18 | Outpatient (REF) | payer MEDICARE, BC, OTHER | LOC: M LAB REF 16:59 | PROVIDERS: ATTEND Physician Assistant | DX: R35.0 Frequency of micturition (principal) ==

== ENCOUNTER 2021-07-15 09:53 | Observation (INO) | payer MEDICARE, BC, OTHER ==
[~2021-07-15] VITALS: Ht 160 cm; Wt 72.1 kg
[~2021-07-15 09:53] MED LIST changes: +GABA-283 PO; -GABA-845 PO; +OMEP40CA4 PO; -OMEP40CA97 PO
--- NOTE | 2021-07-15 12:36 | REP ---
INDICATION: Altered Mental Status COMPARISON: 02/01/2021 TECHNIQUE: Axial noncontrast images from the skull base to the thoracic inlet with coronal reformations. This CT examination was performed using the following dose reduction techniques: Automated exposure control, adjustment of mA and/or kv according to the patient's size, and use of iterative reconstruction technique. FINDINGS: Atrophy with periventricular leukomalacia and microvascular ischemic changes are appreciated. The ventricles and sulci are symmetric. Doyle-white differentiation is maintained. There is no evidence for acute intracranial hemorrhage, mass/mass effect, pathology or infarction. No extra-axial fluid collection. Calvarium is intact. Paranasal sinuses and mastoid air cells are clear. IMPRESSION: Atrophy and microvascular ischemic changes. No acute intracranial hemorrhage, infarction, or mass/mass effect. <Electronically signed by Johnathon Alba > 07/15/21 [id number]
--- NOTE | 2021-07-15 12:40 | REP ---
INDICATION: Altered Mental Status. COMPARISON: Multiple the latest 04/25/2020 TECHNIQUE: Portable FINDINGS: The technique utilized in obtaining the radiograph has magnified the cardiac silhouette and accentuated the interstitial markings. There is elevation of the diaphragmatic surface of the right lung status quo. The cardiomediastinal silhouette is stable. The heart is not enlarged. No acute patchy parenchymal opacities or pleural effusions have developed. Internal fixation rods and transpedicular screws are again noted. IMPRESSION: There is no acute cardiopulmonary disease. <Electronically signed by Ryan Vargas > 07/15/21 3000
[2021-07-15] MEDS ORDERED: CHLO125TA PO (12:55)
[2021-07-15] MEDS ORDERED: POTA1TAB23 PO (12:55)
[2021-07-15] MEDS ORDERED: PREG150C PO (12:55)
[2021-07-15] MEDS ORDERED: OXYC10TA12 PO (12:55)
[2021-07-15 13:53] LABS: BASO % 0.6 % (0.0-1.0); EOS # 0.3 10^3/uL (0.0-0.5); EOS % 4.4 % (0.0-3.0); HEMATOCRIT 36.4 % (36.0-47.0); HEMOGLOBIN 11.3 g/dl (12.0-15.5); LYMPH # 1.9 10^3/uL (1.5-5.0); LYMPH % 28.7 % (24.0-44.0); MEAN CORPUSCULAR HEMOGLOBIN 26.5 pg (27.0-33.0); MEAN CORPUSCULAR VOLUME 85.4 fl (80.0-96.0); MONO # 0.4 10^3/uL (0.0-0.8); MONO % 6.4 % (2.0-8.0); NEUTROPHILS # 3.9 10^3/uL (1.5-8.5); NEUTROPHILS % 59.6 % (36.0-66.0); PLATELET COUNT, AUTOMATED 236 10^3/uL (150-450); RED BLOOD COUNT 4.26 10^6/uL (4.00-5.40); WHITE BLOOD COUNT 6.6 10^3/uL (4.0-10.0)
[2021-07-15] MEDS ORDERED: ROPI4TAB3 PO (14:09)
[2021-07-15] MEDS ORDERED: MULT-40 PO (14:09)
[2021-07-15] MEDS ORDERED: ASPI81TA26 PO (14:09)
[2021-07-15] MEDS ORDERED: [UNRECOGNIZED DRUG - CODE] PO (14:09)
[2021-07-15] MEDS ORDERED: FLUTISP NARES (14:09)
[2021-07-15] MEDS ORDERED: LOSA100T50 PO (14:09)
[2021-07-15] MEDS ORDERED: MAGN500C2 PO (14:09)
[2021-07-15] MEDS ORDERED: HOME MED LIST COMPLETE! XX SCH (14:10)
[2021-07-15 14:18] LABS: RSV AMPLIFICATION NEGATIVE (NEGATIVE)
[2021-07-15 14:22] LABS: ACETAMINOPHEN LEVEL < 2.0 UG/ML (10.0-30.0); ALT/SGPT 31 U/L (12-78); BILIRUBIN,DIRECT < 0.1 MG/DL (0.0-0.2); BILIRUBIN,TOTAL 0.2 MG/DL (0.2-1.0); BLOOD UREA NITROGEN 23 MG/DL (7-18); CALCIUM LEVEL 8.8 MG/DL (8.8-10.2); CARBON DIOXIDE LEVEL 33 MEQ/L (21-32); CHLORIDE LEVEL 106 MEQ/L (98-107); CK-MB VALUE MASS 3.8 NG/ML (<3.6); CPK CREATINE PHOSPHOKINASE 33 U/L (26-192); CREATININE FOR GFR 0.76 MG/DL (0.55-1.30); ETHYL ALCOHOL (ETHANOL) < 0.003 % (0.000-0.010); GLOMERULAR FILTRATION RATE > 60.0 (>45); GLUCOSE, FASTING 77 MG/DL (70-100); MB/CK RELATIVE INDEX 11.52 (< OR =4); POTASSIUM SERUM 5.2 MEQ/L (3.5-5.1); SALICYLATE LEVEL < 1.7 MG/DL (5.0-30.0); SODIUM LEVEL 142 MEQ/L (136-145); THYROID STIMULATING HORMONE 0.596 uIU/ML (0.358-3.740); TOTAL PROTEIN 6.5 GM/DL (6.4-8.2); TROPONIN I < 0.02 NG/ML (< 0.10)
[2021-07-15] MEDS ORDERED: GLUCAGON INJ 1MG VIAL SC PRN (15:15)
[2021-07-15] MEDS ORDERED: BACLOFEN 10 MG TAB PO PRN (15:15)
[2021-07-15] MEDS ORDERED: GLUCOSE 4GM CHEW TABLET PO PRN (15:15)
[2021-07-15] MEDS ORDERED: DEXTROSE 50% 50 ML SYRINGE IV PRN (15:15)
[2021-07-15 16:31] LABS: AMPHETAMINES LEVEL URINE NEGATIVE (NEGATIVE); BARBITURATES URINE NEGATIVE (NEGATIVE); BENZODIAZEPINES URINE NEGATIVE (NEGATIVE); CANNABINOIDS URINE NEGATIVE (NEGATIVE); COCAINE METABOLITE URINE NEGATIVE (NEGATIVE); METHADONE URINE NEGATIVE (NEGATIVE); OPIATES URINE POSITIVE (NEGATIVE); PHENCYCLIDINE URINE NEGATIVE (NEGATIVE)
[2021-07-15 16:38] LABS: HEMOGLOBIN A1c 5.7 %
[2021-07-15] MEDS ORDERED: ACETAMINOPHEN 500 MG TAB PO PRN (17:00)
[2021-07-15] MEDS ORDERED: oxyCODONE 5MG TAB PO PRN (17:25)
[2021-07-15] MEDS ORDERED: HumaLOG INSULIN (NovoLOG) PER UNIT SC SCH ×2 (17:30→21:00)
--- NOTE | 2021-07-15 17:30 | HPEPDOC ---
General Date of Admission Jul 15, 2021 at 09:54 Date of Service: Jul 15, 2021 Chief Complaint The patient is a 66-year-old female admitted with a reason for visit of Left Sided Numbness. History of Present Illness 66-year-old female with past medical history of Diabetes with severe bilateral sensorimotor polyneuropathy, hypertension, history of morbid obesity status post gastric bypass in 2006, bilateral moderate to severe carpal tunnel syndrome, mild right-sided ulnar neuropathy, inferior falx meningioma 8 mm last in February 2020, migraine, chronic pain on opiates, urinary incontinence, Crohn's disease, Sjogren's syndrome, glaucoma, kidney stones, spinal cord stimulator, Garcia rods in the back presented to the ED with 3 days history of unsteady gait, weakness, excessive sleepiness, tingling of tips of the fingers of both hands and 1 day history of perioral numbness and numbness of the tip of the tongue which started this morning and prompted her to come to the ED. She thought she may be having a stroke so presented herself to the ED for evaluation. While in the ED she started having a headache located on the right frontal parietal region, throbbing in nature about 6/10 in intensity. She is also complained of increased paresthesia of both of her legs mostly on the left for the past 3 days causing problem with gait and balance. She denied any dizziness or lightheadedness denied any nausea vomiting or diarrhea. She has been admitted for evaluation for her various neurological symptoms. They could not do an MRI in our hospital because it is a 3D machine which is not compatible with Garcia rods are spinal cord stimulator. I discussed the patient symptoms with neurology and Dr. Marques suggested a repeat CT scan tomorrow. Home Medications Scheduled Aspirin (Aspirin EC) 81 Mg Tablet.dr, 81 MG PO DAILY, (Reported) Calcium Carbonate/Vitamin D3 (Calcium 600 + Vit D 400 Softgl) 1 Each Capsule, 1 CAP PO DAILY, (Reported) Carvedilol (Carvedilol) 6.25 Mg Tab, 6.25 MG PO BID, (Reported) Colestipol HCl (Colestipol HCl) 1 Gm Tablet, 1 GM PO BID, (Reported) Dulaglutide (Trulicity) 1.5 Mg/0.5 Ml Pen.injctr, 1.5 MG SC 1XWK, (Reported) ON MONDAYS Elderberry Fruit and Flower (Black Elderberry 575 mg Cap) 1 Each Capsule, 1 CAP PO DAILY, (Reported) Famotidine (Famotidine) 20 Mg Tablet, 20 MG PO BID, (Reported) Losartan Potassium (Losartan Potassium) 100 Mg Tablet, 100 MG PO DAILY, (Reported) Magnesium Oxide (Magnesium Oxide) 500 Mg Capsule, 500 MG PO QHS, (Reported) Mesalamine (Pentasa) 500 Mg Capsule.er, 1,500 MG PO BID, (Reported) Metformin HCl (Metformin HCl) 1,000 Mg Tablet, 1,000 MG PO DAILY, (Reported) Multivitamin (Multivitamins) 1 Each Tablet, 1 TAB PO DAILY, (Reported) Omeprazole (Omeprazole) 40 Mg Capsule.dr, 40 MG PO DAILY, (Reported) Potassium Chloride (Potassium Chloride) 10 Meq Tablet.er, 10 MEQ PO DAILY, (Reported) Pregabalin (Pregabalin) 150 Mg Capsule, 150 MG PO TID, (Reported) Ropinirole HCl (Ropinirole HCl) 4 Mg Tablet, 4 MG PO QHS, (Reported) Trazodone HCl (Trazodone HCl) 50 Mg Tablet, 100 MG PO QHS, (Reported) Vitamin E (Dl,Tocopheryl Acet) (Vitamin E) 450 Mg (1000 Unit) Capsule, 450 MG PO DAILY, (Reported) Zoledronic Acid/Mannitol-Water (Reclast 5 mg/100 ml Solution) 5 Mg/100 Ml Pggybk.btl, 5 MG IV ASDIRECTED, (Reported) GETS EVERY NOVEMBER Scheduled PRN Baclofen (Baclofen) 10 Mg Tablet, 10 MG PO TID PRN for MUSCLE SPASMS, (Reported) Diphenoxylate HCl/Atropine (Lomotil 2.5-0.025 mg Tablet) 1 Each Tablet, 1 TAB PO TID PRN for DIARRHEA, (Reported) Fluticasone Propionate (Fluticasone Propionate) 16 Gm [place].susp, 1 SPRAY NARES BID PRN for CONGESTION, (Reported) Hyoscyamine Sulfate (Hyoscyamine Sulfate) 125 Mcg/5 Ml Elixir, 0.125 MG PO BID PRN for IRRITABLE BOWEL SYMPTOMS, (Reported) Oxycodone HCl (Oxycodone HCl) 10 Mg Tablet, 10 MG PO TID PRN for PAIN LEVEL 5- 10, (Reported) Allergies Coded Allergies: Contrast Media (Verified Allergy, Severe, SHOCK,HIVES,DIFFICULTY BREATHING, 02/10/19) HIVES, DIFFICULTY BREATHING fentanyl (Verified Adverse Reaction, Severe, HX OF AMS AND HYPOTENSION REQUIRING ED VISIT, 03/08/19) HX OF AMS AND HYPOTENSION WHILE ON FENTANYL PATCH AND PRN OPIOIDS REQUIRING ED VISIT AND NARCAN ADMINISTRATION IN JANUARY 2019 latex (Verified Adverse Reaction, Intermediate, hives, 07/15/21) naproxen (Verified Adverse Reaction, Mild, gastric upset, 07/15/21) promethazine (Verified Adverse Reaction, Mild, hallucinations, 07/15/21) Past Medical History Medical History Diabetes with severe bilateral sensorimotor polyneuropathy, hypertension, history of morbid obesity status post gastric bypass in 2006, bilateral moderate to severe carpal tunnel syndrome, mild right-sided ulnar neuropathy, inferior falx meningioma 8 mm last in February 2020, migraine, chronic pain on opiates, urinary incontinence, Crohn's disease, Sjogren's syndrome, glaucoma, kidney stones, spinal cord stimulator, Garcia rods in the back, Surgical History Cholecystectomy, gastric bypass surgery, hysterectomy, hernia repair, right knee surgery, appendectomy, left foot surgery into 3 times, cataract surgery both eyes , breast biopsies , and all future surgeries , spinal cord stimulator pl acement , back surgery x2 with fernando placement Family History FATHER: , BLADDER CANCER,COPD MOTHER: , PANCREATIC CANCER,BREAST CANCER X 2, DIABETES, HEART DISEASE SIBLINGS: ALIVE, YOUNGEST SISTER-KIDNEY CANCER,KIDNEY STONES. BROTHERS HAVE DM AND CHOLESTEROL DAUGHTER(S): ALIVE, THYROID ISSUES Social History * Smoker: former Smoker Alcohol: Denies Drugs: denies A-FIB/CHADSVASC A-FIB History Current/History of A-Fib/PAF?: No Review of Systems Constitutional: Reports: Weakness, Fatigue, Lethargy; Denies: Chills, Fever, Night Sweats Eyes: Denies: Pain, Vision change ENT: Reports: Head Aches; Denies: Ear Pain, Dysphagia, Sinus Congestion Skin: Denies: Rash, Lesions, Breakdown Pulmonary: Denies: Dyspnea, Cough Cardiovascular: Denies: Chest Pain, Palpitations, Orthopnea, Paroxysmal Noc. Dyspnea, Lt Headedness Gastrointestinal: Denies: Nausea, Vomiting, Abdominal Pain, Diarrhea Genitourinary: Reports: Incontinence Hematologic: Denies: Bruising, Bleeding Excessively Musculoskeletal: Reports: Back Pain, Foot Pain, Joint Pain Neurological: Reports: Numbness, Incoordination Physical Examination General Exam: Positive: Alert, Cooperative, No Acute Distress Eye Exam: Positive: PERRLA, Conjunctiva & lids normal, EOMI, Other Eye Symptoms (No nystagmus); Negative: Sclera icteric ENT Exam: Positive: Atraumatic, Mucous membr. moist/pink, Pharynx Normal Neck Exam: Positive: Supple; Negative: JVD, thyromegaly Chest Exam: Positive: Clear to auscultation, Normal air movement Heart Exam: Positive: Rate Normal, Regular Rhythm, Normal S1, Normal S2; Negative: Murmurs, Rubs Abdomen Exam: Positive: Normal bowel sounds, Soft; Negative: Tenderness Extremity Exam: Negative: Clubbing, Cyanosis, Edema Skin Exam: Positive: Nl turgor and temperature; Negative: Breakdown, Lesion Neuro Exam: Positive: Normal Speech, Strength at 5/5 X4 ext, Normal Tone, Other (No DTRs appreciated in number of the lower extremities, 2+ DTRs in both the upper extremities present) Psych Exam: Positive: Memory Intact, Oriented x 3 Vital Signs Vital Signs Date Time Temp Pulse Resp B/P (MAP) Pulse Ox O2 Delivery O2 Flow Rate FiO2 07/15/21 16:16 97.9 68 16 136/60 (85) 96 Room Air Laboratory Data Labs 24H Laboratory Tests 2 07/15/21 13:21: Immature Granulocyte % (Auto) 0.3, Neutrophils (%) (Auto) 59.6, Lymphocytes (%) (Auto) 28.7, Monocytes (%) (Auto) 6.4, Eosinophils (%) (Auto) 4.4H, Basophils (%) (Auto) 0.6, Neutrophils # (Auto) 3.9, Lymphocytes # (Auto) 1.9, Monocytes # (Auto) 0.4, Eosinophils # (Auto) 0.3, Basophils # (Auto) 0.0, Nucleated Red Blood Cells % (auto) 0.0, Anion Gap 3L, Glomerular Filtration Rate > 60.0, Estimated Mean Plasma Glucose 117H, Hemoglobin A1c 5.7, Calcium Level 8.8, Total Bilirubin 0.2, Direct Bilirubin < 0.1, Aspartate Amino Transf (AST/SGOT) 15, Alanine Aminotransferase (ALT/SGPT) 31, Alkaline Phosphatase 39L, Ammonia < 10, Total Creatine Kinase 33, Creatine Kinase MB 3.8H, Creatine Kinase MB Relative Index 11.52H, Troponin I < 0.02, Total Protein 6.5, Albumin 3.0L, Albumin/Globulin Ratio 0.9L, Thyroid Stimulating Hormone (TSH) 0.596, Salicylates Level < 1.7L, Acetaminophen Level < 2.0L, Ethyl Alcohol Level < 0.003, Coronavirus (COVID-19)(PCR) NEGATIVE, Influenza Type A (RT-PCR) NEGATIVE, Influenza Type B (RT-PCR) NEGATIVE, Respiratory Syncytial Virus (PCR) NEGATIVE 07/15/21 15:48: Urine Color YELLOW, Urine Appearance HAZY, Urine pH 6.0, Urine Specific [place] 1.019, Urine Protein NEGATIVE, Urine Glucose (UA) NEGATIVE, Urine Ketones NEGATIVE, Urine Blood NEGATIVE, Urine Nitrite POSITIVEH, Urine Bilirubin NEGATIVE, Urine Urobilinogen 0.2, Urine Leukocyte Esterase 2+H, Urine WBC (Auto) 60H, Urine RBC (Auto) 2, Urine Hyaline Casts (Auto) 0, Urine Bacteria (Auto) 1+H, Urine Squamous Epithelial Cells 0, Urine Sperm (Auto) , Urine Opiates Screen POSITIVEH, Urine Methadone Screen NEGATIVE, Urine Barbiturates Screen NEGATIVE, Urine Phencyclidine Screen NEGATIVE, Urine Amphetamines Screen NEGATIVE, Urine Benzodiazepines Screen NEGATIVE, Urine Cocaine Metabolite Screen NEGATIVE, Urine Cannabinoids Screen NEGATIVE CBC/BMP Laboratory Tests 07/15/21 13:21 Microbiology Microbiology 07/15/21 Urine Culture, Received Pending Assessment/Plan 66-year-old female with past medical history of Diabetes with severe bilateral sensorimotor polyneuropathy, hypertension, history of morbid obesity status post gastric bypass in 2006, bilateral moderate to severe carpal tunnel syndrome, mild right-sided ulnar neuropathy, inferior falx meningioma 8 mm last in February 2020, migraine, chronic pain on opiates, urinary incontinence, Crohn's disease, Sjogren's syndrome, glaucoma, kidney stones, spinal cord stimulator, Garcia rods in the back presented to the ED with 3 days history of unsteady gait, weakness, excessive sleepiness, tingling of tips of the fingers of both hands and 1 day history of perioral numbness and numbness of the tip of the tongue which started this morning and prompted her to come to the ED. She thought she may be having a stroke so presented herself to the ED for evaluation. While in the ED she started having a headache located on the right frontal parietal region, throbbing in nature about 6/10 in intensity. She is also complained of increased paresthesia of both of her legs mostly on the left for the past 3 days causing problem with gait and balance. She denied any dizziness or lightheadedness denied any nausea vomiting or diarrhea. She has been admitted for evaluation for her various neurological symptoms. Varied neurological symptoms rule out stroke Her neurological symptoms are bilateral and do not clinically support a stroke But will observe her on telemetry overnight for no arrhythmias We will repeat a CT scan tomorrow morning We will continue aspirin and statin PT and OT Generalized weakness/lethargy/excessive sleepiness Patient's A1c is only 5.7 Patient may be having episodes of hypoglycemia at home giving rise to the symptoms Will have to DC oral antidiabetic medications. Patient is also on multiple sedating medications combination of which could also give a sensation of lethargy and excessive sleepiness. Gait instability and paresthesia of both the lower extremities This is likely due to severe sensorimotor peripheral neuropathy This is unlikely stroke as it is bilateral. However we will do a repeat CT scan tomorrow to see if there is any new changes We cannot do an MRI in our facility because of her spinal cord stimulator and Garcia rods. Tingling of the fingertips of both hands Patient has moderate to severe bilateral carpal tunnel syndrome as well as r ight-sided ulnar neuropathy These bilateral symptoms are likely due to peripheral neuropathy and carpal tunnel syndrome Perioral numbness with new onset headache This is also likely due to neuropathy as this is not unusual symptom of stroke Due to the new onset headache this could be a atypical migraine Diabetes with polyneuropathy A1c is 5.7 We will discontinue oral antidiabetic medications Hypertension We will continue Coreg, losartan Chronic back pain/muscle spasm Continue with Lyrica, baclofen home opiates Crohn's disease Continue with mesalamine Restless leg syndrome Continue ropirinole Plan / VTE VTE Prophylaxis Ordered?: Yes Laya Persaud MD Jul 15, 2021 17:29
[2021-07-15] MEDS: PREGABALIN 75 MG CAP(LYRICA) PO SCH ×2 (18:35→20:50)
[2021-07-15 18:52] VITALS: BP 149/86
[2021-07-15] MEDS: MESALAMINE 250 MG CR CAP PO SCH (20:50)
[2021-07-15 20:51] VITALS: BP 146/80
[2021-07-15] MEDS: CARVedilol 6.25 MG TAB PO SCH (20:51)
[2021-07-15] MEDS ORDERED: traZODone 50 MG TAB PO SCH (21:00)
[2021-07-15] MEDS ORDERED: rOPINIRole 1MG TAB PO SCH (21:00)
[2021-07-15] MEDS ORDERED: ATORVASTATIN 20 MG TAB PO SCH (21:00)
--- NOTE | 2021-07-15 21:39 | ECGEPIP ---
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
[2021-07-15 22:00] VITALS: BP 124/64
[2021-07-16 06:00] VITALS: BP 134/70
[2021-07-16 08:37] VITALS: BP 145/71
[2021-07-16] MEDS: PREGABALIN 75 MG CAP(LYRICA) PO SCH (08:39)
[2021-07-16] MEDS: MESALAMINE 250 MG CR CAP PO SCH (08:39)
[2021-07-16] MEDS: CARVedilol 6.25 MG TAB PO SCH (08:39)
[2021-07-16] MEDS ORDERED: OMEPRAZOLE 20 MG CAP PO SCH (09:00)
[2021-07-16] MEDS ORDERED: ASPIRIN 81MG ENTERIC TABLET PO SCH (09:00)
[2021-07-16] MEDS ORDERED: ENOXAPARIN 40MG/0.4ML SYRINGE (J1650 PER 10MG) SC SCH (09:00)
[2021-07-16] MEDS ORDERED: LOSARTAN 50MG TABLET PO SCH (09:00)
[2021-07-16] MEDS ORDERED: POTASSIUM CHLORIDE 10 MEQ SR TABLET PO SCH (09:00)
[2021-07-16] MEDS ORDERED: METOCLOPRAMIDE INJ 10MG/2ML VIAL (J2765 PER 1) IV ONE (10:05)
[2021-07-16] MEDS ORDERED: SUMAtriptan SUCCINATE 25 MG TAB PO ONE (10:05)
[2021-07-16] MEDS ORDERED: KETOROLAC 30 MG/ML 1ML VIAL IV ONE (10:05)
--- NOTE | 2021-07-16 10:49 | REPVR ---
PROCEDURE INFORMATION: Exam: CT Head Without Contrast Exam date and time: 07/16/2021 10:27 AM Age: 66 years old Clinical indication: Pain; Other: Follow up; Additional info: Possible stroke follow up on previous t as mri cannot be don TECHNIQUE: Imaging protocol: Computed tomography of the head without contrast. Radiation optimization: All CT scans at this facility use at least one of these dose optimization techniques: automated exposure control; mA and/or kV adjustment per patient size (includes targeted exams where dose is matched to clinical indication); or iterative reconstruction. COMPARISON: CT Head without contrast 07/15/2021 12:22 PM FINDINGS: Brain: There is no acute intracranial hemorrhage or mass effect. Mild diffuse volume loss is within the range of normal for patient age. There are small vessel ischemic changes within the periventricular and subcortical white matter, but the normal betts/white matter delineation is maintained. Scattered extra-axial calcifications could reflect small meningiomas. There is no mass effect. Cerebral ventricles: No ventriculomegaly. Paranasal sinuses: Visualized sinuses are unremarkable. No fluid levels. Mastoid air cells: Visualized mastoid air cells are well aerated. Bones/joints: Unremarkable. No acute fracture. Soft tissues: Unremarkable. IMPRESSION: No acute hemorrhage or edema. Electronically signed by: Patricia Kapoor On 07/16/2021 10:48:50 AM
--- NOTE | 2021-07-16 14:17 | DS.PDOC ---
Discharge Summary General Date of Admission Jul 15, 2021 at 09:54 Date of Discharge 07/16/21 Discharge Summary PROCEDURES PERFORMED DURING STAY: [None]. DISCHARGE DIAGNOSES: Perioral numbness and Right cheek due to neuropathy or Atypical Migraine Gait instability due to peripheral neuropathy and back issues. Acute Migraine Possible episodes of Hypoglycemia at home. SECONDARY DIAGNOSIS: Diabetes with severe bilateral sensorimotor polyneuropathy, hypertension, history of morbid obesity status post gastric bypass in 2006, bilateral moderate to severe carpal tunnel syndrome, mild right-sided ulnar neuropathy, inferior falx meningioma 8 mm last in February 2020, migraine, chronic pain on opiates, urinary incontinence, Crohn's disease, Sjogren's syndrome, glaucoma, kidney stones, spinal cord stimulator, Garcia rods in the back, insomnia, anxiety COMPLICATIONS/CHIEF COMPLAINT: Left Sided Numbness. HOSPITAL COURSE: 66-year-old female with past medical history of Diabetes with severe bilateral sensorimotor polyneuropathy, hypertension, history of morbid obesity status post gastric bypass in 2006, bilateral moderate to severe carpal tunnel syndrome, mild right-sided ulnar neuropathy, inferior falx meningioma 8 mm last in February 2020, migraine, chronic pain on opiates, urinary incontinence, Crohn's disease, Sjogren's syndrome, glaucoma, kidney stones, spinal cord stimulator, Garcia rods in the back presented to the ED with 3 days history of unsteady gait, weakness, excessive sleepiness, tingling of tips of the fingers of both hands and 1 day history of perioral numbness and numbness of the tip of the tongue which started this morning and prompted her to come to the ED. She thought she may be having a stroke so presented herself to the ED for evaluation. While in the ED she started having a headache located on the right frontal parietal region, throbbing in nature about 6/10 in intensity. She is also complained of increased paresthesia of both of her legs mostly on the left for the past 3 days causing problem with gait and balance. She denied any dizziness or lightheadedness denied any nausea vomiting or diarrhea. She has been admitted for evaluation for her various neurological symptoms. Varied neurological symptoms rule out stroke Her neurological symptoms are bilateral and do not clinically support a stroke telemetry overnight no arrhythmias CT scan today so signs of stroke We cannot do an MRI in our facility because of her spinal cord stimulator and Garcia rods. Will continue aspirin Follow up with Dr Ospina Neurology. Generalized weakness/lethargy/excessive sleepiness Patient's A1c is only 5.7 Patient may be having episodes of hypoglycemia at home giving rise to the symptoms Have discontinued Metformin. Patient is also on multiple sedating medications combination of which could also give a sensation of lethargy and excessive sleepiness. Gait instability and paresthesia of both the lower extremities This is due to severe sensorimotor peripheral neuropathy Tingling of the fingertips of both hands Patient has moderate to severe bilateral carpal tunnel syndrome as well as right-sided ulnar neuropathy These bilateral symptoms are likely due to peripheral neuropathy and carpal tunnel syndrome Perioral numbness and nubness of the right cheek with headache This is also likely due to neuropathy as this is not unusual symptom of stroke Due to the new onset headache this could be a atypical migraine Diabetes with polyneuropathy A1c is 5.7 We will discontinue oral antidiabetic medications Hypertension We will continue Coreg, losartan Chronic back pain/muscle spasm Continue with Lyrica, baclofen home opiates Crohn's disease Continue with mesalamine, colestipol Restless leg syndrome Continue ropirinole DISCHARGE MEDICATIONS: Please see below. ALLERGIES: Please see below. PHYSICAL EXAMINATION ON DISCHARGE: VITAL SIGNS: Please see below. General Exam: Positive: Alert, Cooperative, No Acute Distress Eye Exam: Positive: PERRLA, Conjunctiva & lids normal, EOMI, Other Eye Symptoms (No nystagmus); Negative: Sclera icteric ENT Exam: Positive: Atraumatic, Mucous membr. moist/pink, Pharynx Normal Neck Exam: Positive: Supple; Negative: JVD, thyromegaly Chest Exam: Positive: Clear to auscultation, Normal air movement Heart Exam: Positive: Rate Normal, Regular Rhythm, Normal S1, Normal S2; Negative: Murmurs, Rubs Abdomen Exam: Positive: Normal bowel sounds, Soft; Negative: Tenderness Extremity Exam: Negative: Clubbing, Cyanosis, Edema Skin Exam: Positive: Nl turgor and temperature; Negative: Breakdown, Lesion Neuro Exam: Positive: Normal Speech, Strength at 5/5 X4 ext, Normal Tone, Other (No DTRs appreciated in number of the lower extremities, 2+ DTRs in both the upper extremities present) Psych Exam: Positive: Memory Intact, Oriented x 3 LABORATORY DATA: Please see below. ACTIVITY: [As tolerated]. DIET: Carb consistent DISPOSITION: 01 Home, Self-Care. DISCHARGE INSTRUCTIONS: Follow up with Dr Ospina in 2 weeks PMD in 1 week DISCHARGE CONDITION: [Stable]. TIME SPENT ON DISCHARGE: 35 minutes. Vital Signs/I&Os Vital Signs Date Time Temp Pulse Resp B/P (MAP) Pulse Ox O2 Delivery O2 Flow Rate FiO2 07/16/21 08:37 68 145/71 (95) 07/16/21 06:00 98.2 16 95 Room Air Laboratory Data Labs 24H Laboratory Tests 2 07/15/21 15:48: Urine Color YELLOW, Urine Appearance HAZY, Urine pH 6.0, Urine Specific [place] 1.019, Urine Protein NEGATIVE, Urine Glucose (UA) NEGATIVE, Urine Ketones NEGATIVE, Urine Blood NEGATIVE, Urine Nitrite POSITIVEH, Urine Bilirubin NEGATIVE, Urine Urobilinogen 0.2, Urine Leukocyte Esterase 2+H, Urine WBC (Auto) 60H, Urine RBC (Auto) 2, Urine Hyaline Casts (Auto) 0, Urine Bacteria (Auto) 1+H, Urine Squamous Epithelial Cells 0, Urine Sperm (Auto) , Urine Opiates Screen POSITIVEH, Urine Methadone Screen NEGATIVE, Urine Barbiturates Screen NEGATIVE, Urine Phencyclidine Screen NEGATIVE, Urine Amphetamines Screen NEGATIVE, Urine Benzodiazepines Screen NEGATIVE, Urine Cocaine Metabolite Screen NEGATIVE, Urine Cannabinoids Screen NEGATIVE 07/15/21 20:38: Bedside Glucose (Misc Panel) 75L 07/16/21 06:14: Bedside Glucose (Misc Panel) 83 07/16/21 08:22: Bedside Glucose (Misc Panel) 86 07/16/21 11:19: Bedside Glucose (Misc Panel) 92 FSBS Laboratory Tests Test 07/15/21 20:38 07/16/21 06:14 07/16/21 08:22 07/16/21 11:19 Range/Units Bedside Glucose (Misc Panel) 75 83 86 92 80-115 MG/DL Microbiology Microbiology 07/15/21 Urine Culture, Received Pending Discharge Medications Scheduled Aspirin (Aspirin EC) 81 Mg Tablet.dr, 81 MG PO DAILY, (Reported) Calcium Carbonate/Vitamin D3 (Calcium 600 + Vit D 400 Softgl) 1 Each Capsule, 1 CAP PO DAILY, (Reported) Carvedilol (Carvedilol) 6.25 Mg Tab, 6.25 MG PO BID, (Reported) Colestipol HCl (Colestipol HCl) 1 Gm Tablet, 1 GM PO BID, (Reported) Dulaglutide (Trulicity) 1.5 Mg/0.5 Ml Pen.injctr, 1.5 MG SC 1XWK, (Reported) ON MONDAYS Elderberry Fruit and Flower (Black Elderberry 575 mg Cap) 1 Each Capsule, 1 CAP PO DAILY, (Reported) Famotidine (Famotidine) 20 Mg Tablet, 20 MG PO BID, (Reported) Losartan Potassium (Losartan Potassium) 100 Mg Tablet, 100 MG PO DAILY, (Reported) Magnesium Oxide (Magnesium Oxide) 500 Mg Capsule, 500 MG PO QHS, (Reported) Mesalamine (Pentasa) 500 Mg Capsule.er, 1,500 MG PO BID, (Reported) Multivitamin (Multivitamins) 1 Each Tablet, 1 TAB PO DAILY, (Reported) Omeprazole (Omeprazole) 40 Mg Capsule.dr, 40 MG PO DAILY, (Reported) Potassium Chloride (Potassium Chloride) 10 Meq Tablet.er, 10 MEQ PO DAILY, (Reported) Pregabalin (Pregabalin) 150 Mg Capsule, 150 MG PO TID, (Reported) Ropinirole HCl (Ropinirole HCl) 4 Mg Tablet, 4 MG PO QHS, (Reported) Trazodone HCl (Trazodone HCl) 50 Mg Tablet, 100 MG PO QHS, (Reported) Vitamin E (Dl,Tocopheryl Acet) (Vitamin E) 450 Mg (1000 Unit) Capsule, 450 MG PO DAILY, (Reported) Zoledronic Acid/Mannitol-Water (Reclast 5 mg/100 ml Solution) 5 Mg/100 Ml Pggybk.btl, 5 MG IV ASDIRECTED, (Reported) GETS EVERY NOVEMBER Scheduled PRN Baclofen (Baclofen) 10 Mg Tablet, 10 MG PO TID PRN for MUSCLE SPASMS, (Reported) Diphenoxylate HCl/Atropine (Lomotil 2.5-0.025 mg Tablet) 1 Each Tablet, 1 TAB PO TID PRN for DIARRHEA, (Reported) Fluticasone Propionate (Fluticasone Propionate) 16 Gm [place].susp, 1 SPRAY NARES BID PRN for CONGESTION, (Reported) Hyoscyamine Sulfate (Hyoscyamine Sulfate) 125 Mcg/5 Ml Elixir, 0.125 MG PO BID PRN for IRRITABLE BOWEL SYMPTOMS, (Reported) Oxycodone HCl (Oxycodone HCl) 10 Mg Tablet, 10 MG PO TID PRN for PAIN LEVEL 5- 10, (Reported) Allergies Coded Allergies: Contrast Media (Verified Allergy, Severe, SHOCK,HIVES,DIFFICULTY BREATHING, 02/10/19) HIVES, DIFFICULTY BREATHING fentanyl (Verified Adverse Reaction, Severe, HX OF AMS AND HYPOTENSION REQUIRING ED VISIT, 03/08/19) HX OF AMS AND HYPOTENSION WHILE ON FENTANYL PATCH AND PRN OPIOIDS REQUIRING ED VISIT AND NARCAN ADMINISTRATION IN JANUARY 2019 latex (Verified Adverse Reaction, Intermediate, hives, 07/15/21) naproxen (Verified Adverse Reaction, Mild, gastric upset, 07/15/21) promethazine (Verified Adverse Reaction, Mild, hallucinations, 07/15/21) Laya Persaud MD Jul 16, 2021 14:17
[2021-07-16] MEDS ORDERED: NON-FORMULARY 1 EA EA PO SCH (21:00)
[2021-07-16] MEDS ORDERED: FAMOTIDINE 20 MG TAB PO SCH (21:00)
== END 2021-07-16 13:50 | disposition home or self-care (01) ==
LOC: M ED 09:53 → M ED INP 09:54 → ENRESERV 15:33 → M MSPAV 18:47
PROVIDERS: ADMIT Internal Medicine Nephrology; ATTEND Internal Medicine Nephrology
DX: R20.0 Anesthesia of skin (principal); R20.2 Paresthesia of skin; R26.81 Unsteadiness on feet; G43.909 Migraine, unspecified, not intractable, without status migrainosus; E11.42 Type 2 diabetes mellitus with diabetic polyneuropathy; G60.8 Other hereditary and idiopathic neuropathies; R53.1 Weakness; R53.83 Other fatigue; I10 Essential (primary) hypertension; Z98.84 Bariatric surgery status; G56.23 Lesion of ulnar nerve, bilateral upper limbs; M54.9 Dorsalgia, unspecified; G89.29 Other chronic pain; M62.830 Muscle spasm of back; Z96.82 Presence of neurostimulator; Z98.1 Arthrodesis status; M35.00 Sjogren syndrome, unspecified; K50.90 Crohn's disease, unspecified, without complications; G25.81 Restless legs syndrome; Z79.899 Other long term (current) drug therapy; Z79.82 Long term (current) use of aspirin; Z91.041 Radiographic dye allergy status; Z91.040 Latex allergy status; Z88.8 Allergy status to other drugs, medicaments and biological substances; Z88.4 Allergy status to anesthetic agent; Z87.891 Personal history of nicotine dependence
CPT/HCPCS: 70450; 71045; 80048; 80076; 80143; 80307; 81001; 82077; 82140; 82550; 82553; 83036; 84443; 84484; 85025; 87088; 87186; 87631; 93005; 93041; 94760; 96372; 96374; 96375; 97161; 97530; 99285; G0378; J1650; J1885; J2765

== ENCOUNTER → 2021-08-15 | Outpatient (CLI) | payer MEDICARE, BC, OTHER ==
[~2021-08-15] MED LIST changes: +ASPI81TA26 PO; +CHLO125TA PO; +FLUTISP NARES; +LOSA100T50 PO; +MAGN500C2 PO; +MULT-40 PO; +OXYC10TA12 PO; +POTA1TAB23 PO; +PREG150C PO; +ROPI4TAB3 PO; +[UNRECOGNIZED DRUG - CODE] PO
--- NOTE | 2021-08-15 12:53 | REP ---
INDICATION: PAIN IN LEFT KNEE. COMPARISON: June 20, 2017. TECHNIQUE: Five views of the left knee are provided. FINDINGS: 5 views of the left knee demonstrate fullness in the suprapatellar bursa indicative of joint effusion. There is articular and non articular spurring of the patella. Minimal medial compartment spur formation is seen. No fracture or subluxation is seen. No opaque foreign body noted. IMPRESSION: Evidence of moderate joint effusion. Patellofemoral osteoarthritis. Quadriceps tendon insertion site spurring on the superior pole the patella. Mild tibiofemoral osteoarthritis. <Electronically signed by Beny Rivera > 08/15/21 [id number]
[2021-08-15 15:11] LABS: APPEARANCE, URINE CLEAR (CLEAR); BACTERIA, URINE AUTO NEGATIVE (NEGATIVE); BILIRUBIN, URINE AUTO NEGATIVE (NEGATIVE); BLOOD, URINE BLOOD NEGATIVE (NEGATIVE); COLOR, URINE YELLOW (YELLOW); GLUCOSE, URINE (UA) AUTO NEGATIVE (NEGATIVE); KETONE, URINE AUTO NEGATIVE (NEGATIVE); LEUKOCYTE ESTERASE, URINE AUTO NEGATIVE (NEGATIVE); MUCUS, URINE SMALL (NEGATIVE); NITRITE, URINE AUTO NEGATIVE (NEGATIVE); PROTEIN, URINE AUTO NEGATIVE (NEGATIVE); RBC, URINE AUTO 2 /HPF (0-3); SPECIFIC GRAVITY URINE AUTO 1.024 (1.002-1.035); SQUAMOUS EPITHELIAL CELL UR AU 0 /HPF (0-6); UROBILINOGEN, URINE AUTO 0.2 mg/dL (0.0-2.0); WBC, URINE AUTO 1 /HPF (0-3)
== END ==
LOC: M PLAIMG 11:56
PROVIDERS: ATTEND Physician Assistant
DX: M25.562 Pain in left knee (principal); R35.0 Frequency of micturition; M17.12 Unilateral primary osteoarthritis, left knee

== ENCOUNTER → 2021-09-23 | Outpatient (CLI) | payer MEDICARE, BC, OTHER ==
[~2021-09-23] MED LIST changes: -CYMB60CA3 PO; +CYMB60CA4 PO
--- NOTE | 2021-09-23 20:23 | ECHO ---
ECHOCARDIOGRAM DATE OF PROCEDURE: 09/23/2021 Age: 66 Gender: Female Height: 160 cm Weight: 78 kg REFERRING PHYSICIAN: Jonathan Haskins PA-C INDICATION: Chest pain. MEASUREMENTS: IVS 1.1 cm LV 4.1 cm LVPW 0.9 cm LA 3.3 cm Aorta 2.8 cm DOPPLER MEASUREMENT Mitral E wave velocity 75 Mitral A wave velocity 99 E prime septal 7.6 E prime lateral 8.8 FINDINGS: This study is of acceptable technical quality with somewhat limited visualization. Underlying sinus rhythm. Left ventricle is normal size and has overall preserved systolic function with estimated LVEF of 60% to 65%. I do not appreciate any segmental wall motion abnormalities. Right ventricle is also of normal size and systolic function. Both atria appear normal. Aortic valve is tricuspid. It has normal mobility. There are minimal degenerative abnormalities of the mitral valve, but mobility of leaflets is preserved. Tricuspid valve appears normal. Pulmonic valve was not seen. No pericardial effusion is noted. Inferior vena cava was not seen. Aortic root is normal. Aortic arch and abdominal aorta were not well seen. Doppler interrogation of the aortic valve reveals no stenosis or insufficiency. There is also competent mitral valve. Trace tricuspid insufficiency is seen. Calculated pulmonary artery pressure is within normal limits. Mitral inflow pattern and tissue Doppler imaging of the mitral annulus revealed grade 1 diastolic dysfunction. CONCLUSION: 1. Study is of acceptable technical quality. Underlying sinus rhythm. 2. Normal LV size with preserved LV systolic function and grade 1 diastolic dysfunction. 3. No significant valvular disease. 4. Unable to estimate central venous pressure, but likely normal pulmonary artery pressure. 5. No obvious explanation for chest discomfort.
== END ==
LOC: M CARPUL 09:26
PROVIDERS: ATTEND Physician Assistant
DX: R07.89 Other chest pain (principal)

== ENCOUNTER → 2021-11-14 | Outpatient (CLI) | payer MEDICARE, BC, OTHER ==
[~2021-11-14] MED LIST changes: +LOSA100T45 PO; -LOSA100T50 PO; +LOSA25TA13 PO; -LOSA25TA14 PO; +LOSA50TA28 PO; -LOSA50TA88 PO
== END ==
LOC: M PLAIMG 11:43
PROVIDERS: ATTEND Physician Assistant
DX: G89.11 Acute pain due to trauma (principal); S22.41XA Multiple fractures of ribs, right side, initial encounter for closed fracture; X58.XXXA Exposure to other specified factors, initial encounter; Y92.9 Unspecified place or not applicable; Y93.9 Activity, unspecified; Y99.9 Unspecified external cause status

== ENCOUNTER → 2022-01-16 | Outpatient (REF) | payer MEDICARE, BC, OTHER | LOC: M LAB REF 17:15 | PROVIDERS: ATTEND Physician Assistant | DX: N39.0 Urinary tract infection, site not specified (principal) ==

== ENCOUNTER → 2022-03-24 | Outpatient (REF) | payer MEDICARE, OTHER | LOC: M LAB REF 16:42 | PROVIDERS: ATTEND Physician Assistant | DX: R35.0 Frequency of micturition (principal) ==

== ENCOUNTER → 2022-04-24 | Outpatient (REF) | payer MEDICARE, OTHER ==
[2022-04-24 18:34] LABS: APPEARANCE, URINE CLEAR (CLEAR); BACTERIA, URINE AUTO NEGATIVE (NEGATIVE); BILIRUBIN, URINE AUTO NEGATIVE (NEGATIVE); BLOOD, URINE BLOOD NEGATIVE (NEGATIVE); COLOR, URINE YELLOW (YELLOW); GLUCOSE, URINE (UA) AUTO NEGATIVE (NEGATIVE); KETONE, URINE AUTO NEGATIVE (NEGATIVE); LEUKOCYTE ESTERASE, URINE AUTO NEGATIVE (NEGATIVE); MUCUS, URINE SMALL (NEGATIVE); NITRITE, URINE AUTO NEGATIVE (NEGATIVE); PROTEIN, URINE AUTO NEGATIVE (NEGATIVE); RBC, URINE AUTO 0 /HPF (0-3); SPECIFIC GRAVITY URINE AUTO 1.025 (1.002-1.035); SQUAMOUS EPITHELIAL CELL UR AU 1 /HPF (0-6); UROBILINOGEN, URINE AUTO 0.2 mg/dL (0.0-2.0); WBC, URINE AUTO 1 /HPF (0-3)
== END ==
LOC: M LAB REF 17:12
PROVIDERS: ATTEND Physician Assistant
DX: Z01.818 Encounter for other preprocedural examination (principal)

== ENCOUNTER → 2022-05-02 | Outpatient (CLI) | payer MEDICARE, OTHER, BC | LOC: M RAD 13:17 | PROVIDERS: ATTEND Physician Assistant | DX: R22.1 Localized swelling, mass and lump, neck (principal) ==

== ENCOUNTER 2022-06-06 14:24 | Observation (INO) | payer MEDICARE, OTHER, BC ==
[~2022-06-06] VITALS: Ht 162.6 cm; Wt 85.0 kg
[~2022-06-06 14:24] MED LIST changes: +VITA-10 PO; -[UNRECOGNIZED DRUG - CODE] PO
[2022-06-06] MEDS ORDERED: dexameTHASONE 20MG/5ML VIAL (J1100 PER 1MG) IV ONE (15:40)
[2022-06-06 15:50] LABS: BASO % 0.2 % (0.0-1.0); EOS # 0.3 10^3/uL (0.0-0.5); EOS % 2.5 % (0.0-3.0); HEMATOCRIT 36.9 % (36.0-47.0); HEMOGLOBIN 11.9 g/dl (12.0-15.5); LYMPH # 1.3 10^3/uL (1.5-5.0); LYMPH % 12.6 % (24.0-44.0); MEAN CORPUSCULAR HEMOGLOBIN 28.1 pg (27.0-33.0); MEAN CORPUSCULAR HGB CONC 32.2 g/dl (32.0-36.5); MEAN CORPUSCULAR VOLUME 87.2 fl (80.0-96.0); MONO # 0.6 10^3/uL (0.0-0.8); NEUTROPHILS # 7.8 10^3/uL (1.5-8.5); NEUTROPHILS % 78.3 % (36.0-66.0); PLATELET COUNT, AUTOMATED 203 10^3/uL (150-450); RED BLOOD COUNT 4.23 10^6/uL (4.00-5.40)
[2022-06-06] MEDS: COMBIVENT RESPIMAT 100-20MCG INHALER 4GM INH SCH ×3 (16:16→17:10)
[2022-06-06 16:28] LABS: MB/CK RELATIVE INDEX 10.91 (< OR =4)
[2022-06-06] MEDS: IPRATROPIUM 0.5MG/ALBUTEROL 2.5MG INH SOL UD 3ML (DUONEB) NEB SCH ×3 (17:05→17:30)
[2022-06-06] MEDS ORDERED: DULO1CAP5 PO (19:27)
[2022-06-06] MEDS ORDERED: FERR325T19 PO (19:27)
[2022-06-06] MEDS ORDERED: LOSA50TA28 PO (19:27)
[2022-06-06] MEDS ORDERED: POTA1TAB14 PO (19:27)
[2022-06-06] MEDS ORDERED: DULO1CAP6 PO (19:27)
[2022-06-06] MEDS ORDERED: PREG200C PO (19:27)
[2022-06-06] MEDS ORDERED: ROPI2TAB PO (19:27)
[2022-06-06] MEDS ORDERED: HYDR-3490 PO (19:27)
[2022-06-06] MEDS ORDERED: HOME MED LIST COMPLETE! XX SCH (19:30)
[2022-06-06] MEDS ORDERED: traZODone 50 MG TAB PO SCH (21:00)
[2022-06-06] MEDS ORDERED: rOPINIRole 2MG TAB PO SCH (21:00)
[2022-06-06] MEDS ORDERED: INSULIN LISPRO (NovoLOG) PER UNIT SC SCH (21:00)
[2022-06-06] MEDS ORDERED: DULoxetine 30MG CAPSULE (CYMBALTA) PO SCH (21:00)
[2022-06-06] MEDS ORDERED: oxyCODONE 5MG TAB PO PRN (21:05)
[2022-06-06] MEDS ORDERED: DEXTROSE 50% 50 ML SYRINGE IV PRN (21:05)
[2022-06-06] MEDS: NS 1,000 ML IV SCH (21:05)
[2022-06-06] MEDS ORDERED: ALBUTEROL SULFATE 2.5 MG/0.5 ML INH NEB SOLN NEB PRN (21:05)
[2022-06-06] MEDS ORDERED: BACLOFEN 10 MG TAB PO PRN (21:05)
[2022-06-06] MEDS ORDERED: GLUCAGON INJ 1MG VIAL SC PRN (21:05)
[2022-06-06] MEDS ORDERED: GLUCOSE 4GM CHEW TABLET PO PRN (21:05)
[2022-06-06] MEDS: DOXYCYCLINE HYCLATE 100MG TABLET PO SCH (21:35)
[2022-06-06] MEDS: CARVedilol 6.25 MG TAB PO SCH (22:30)
[2022-06-06] MEDS: PREGABALIN 100 MG CAP (LYRICA) PO SCH (22:31)
[2022-06-06 23:31] VITALS: BP 117/59
[2022-06-07] MEDS: IPRATROPIUM 0.5MG/ALBUTEROL 2.5MG INH SOL UD 3ML (DUONEB) NEB SCH ×3 (02:00→11:52)
[2022-06-07] MEDS: HEPARIN SOD (PORCINE) 5000UNITS/ML 1ML VIAL/SYRINGE SC SCH ×2 (05:34→15:21)
[2022-06-07 06:00] VITALS: BP 143/87
[2022-06-07 06:36] LABS: BLOOD UREA NITROGEN 24 MG/DL (7-18); CALCIUM LEVEL 9.2 MG/DL (8.8-10.2); CARBON DIOXIDE LEVEL 27 MEQ/L (21-32); CHLORIDE LEVEL 107 MEQ/L (98-107); CREATININE FOR GFR 0.84 MG/DL (0.55-1.30); GLOMERULAR FILTRATION RATE > 60.0 (>45); GLUCOSE, FASTING 186 MG/DL (70-100); POTASSIUM SERUM 4.8 MEQ/L (3.5-5.1); SODIUM LEVEL 141 MEQ/L (136-145)
[2022-06-07] MEDS: INSULIN LISPRO (NovoLOG) PER UNIT SC SCH ×3 (08:39→17:30)
[2022-06-07] MEDS: DOXYCYCLINE HYCLATE 100MG TABLET PO SCH (08:40)
[2022-06-07 08:42] VITALS: BP 143/87
[2022-06-07] MEDS: CARVedilol 6.25 MG TAB PO SCH (08:42)
[2022-06-07] MEDS: PREGABALIN 100 MG CAP (LYRICA) PO SCH ×2 (08:42→15:21)
[2022-06-07] MEDS: MESALAMINE 250 MG CR CAP PO SCH ×4 (08:42→16:24)
[2022-06-07] MEDS ORDERED: LOSARTAN 50MG TABLET PO SCH (09:00)
[2022-06-07] MEDS ORDERED: PANTOPRAZOLE 40MG TAB (PROTONIX) PO SCH (09:00)
[2022-06-07] MEDS: NS 1,000 ML IV SCH (11:36)
[2022-06-07] MEDS ORDERED: FERROUS SULFATE 325MG TAB PO SCH (12:00)
[2022-06-07 14:00] VITALS: BP 131/67
[2022-06-07] MEDS ORDERED: BREO1INH PO (16:29)
[2022-06-07] MEDS ORDERED: ALBU8.5H INH (16:29)
[2022-06-07] MEDS ORDERED: LEVO750T13 PO (16:29)
[2022-06-07] MEDS ORDERED: BREO1INH3 PO (16:40)
[2022-06-07] MEDS ORDERED: DULoxetine 30MG CAPSULE (CYMBALTA) PO SCH (21:00)
== END 2022-06-07 18:04 | disposition home or self-care (01) ==
LOC: M ED 14:24 → M ED INP 21:03 → ENRESERV 22:26 → M MS5PR 23:51
PROVIDERS: ADMIT Internal Medicine; ATTEND Internal Medicine Nephrology
DX: J20.9 Acute bronchitis, unspecified (principal); J45.909 Unspecified asthma, uncomplicated; R07.1 Chest pain on breathing; R00.2 Palpitations; M79.10 Myalgia, unspecified site; R06.02 Shortness of breath; I10 Essential (primary) hypertension; G43.909 Migraine, unspecified, not intractable, without status migrainosus; K50.90 Crohn's disease, unspecified, without complications; M35.00 Sjogren syndrome, unspecified; E11.40 Type 2 diabetes mellitus with diabetic neuropathy, unspecified; F11.220 Opioid dependence with intoxication, uncomplicated; K21.9 Gastro-esophageal reflux disease without esophagitis; J98.6 Disorders of diaphragm; Z86.16 Personal history of COVID-19; Z79.899 Other long term (current) drug therapy; Z79.4 Long term (current) use of insulin; Z91.041 Radiographic dye allergy status; Z91.040 Latex allergy status; Z88.4 Allergy status to anesthetic agent; Z88.8 Allergy status to other drugs, medicaments and biological substances
CPT/HCPCS: 36415; 36600; 71045; 80047; 80048; 82270; 82550; 82553; 82803; 83605; 83880; 84145; 84484; 85025; 87040; 87486; 87581; 87633; 87798; 93005; 93041; 94640; 94760; 96372; 96374; 97161; 99285; G0378; J1100; J1644; J1815

== ENCOUNTER → 2022-06-10 | Outpatient (REF) | payer MEDICARE, OTHER ==
[~2022-06-10] MED LIST changes: +ALBU8.5H INH; +BREO1INH PO; +BREO1INH3 PO; +DULO1CAP5 PO; +DULO1CAP6 PO; +FERR325T19 PO; +HYDR-3490 PO; +LEVO750T13 PO; +POTA1TAB14 PO; +PREG200C PO; +ROPI2TAB PO
== END ==
LOC: M LAB REF 17:03
PROVIDERS: ATTEND Physician Assistant
DX: R39.15 Urgency of urination (principal)

== ENCOUNTER → 2022-08-25 | Outpatient (CLI) | payer MEDICARE, BC, OTHER ==
[~2022-08-25] MED LIST changes: +LEVO1TAB40 PO; -LEVO750T13 PO
== END ==
LOC: M RAD 14:33
PROVIDERS: ATTEND Physician Assistant Surgical
DX: M79.662 Pain in left lower leg (principal); M25.562 Pain in left knee; Z96.652 Presence of left artificial knee joint

== ENCOUNTER → 2022-09-01 | Outpatient (CLI) | payer MEDICARE, BC, OTHER | LOC: M RAD 12:03 | PROVIDERS: ATTEND Physician Assistant Surgical | DX: M79.89 Other specified soft tissue disorders (principal); M79.662 Pain in left lower leg; Z47.1 Aftercare following joint replacement surgery; Z96.60 Presence of unspecified orthopedic joint implant ==

== ENCOUNTER → 2022-10-22 | Outpatient (CLI) | payer MEDICARE, BC, OTHER ==
[2022-10-22 13:21] LABS: BASO % 0.6 % (0.0-1.0); EOS # 0.1 10^3/uL (0.0-0.5); EOS % 2.3 % (0.0-3.0); HEMATOCRIT 36.3 % (36.0-47.0); HEMOGLOBIN 11.5 g/dl (12.0-15.5); LYMPH # 1.2 10^3/uL (1.5-5.0); LYMPH % 21.6 % (24.0-44.0); MEAN CORPUSCULAR HEMOGLOBIN 26.8 pg (27.0-33.0); MEAN CORPUSCULAR HGB CONC 31.7 g/dl (32.0-36.5); MEAN CORPUSCULAR VOLUME 84.6 fl (80.0-96.0); MONO # 0.3 10^3/uL (0.0-0.8); MONO % 6.4 % (2.0-8.0); NEUTROPHILS # 3.7 10^3/uL (1.5-8.5); NEUTROPHILS % 68.5 % (36.0-66.0); PLATELET COUNT, AUTOMATED 267 10^3/uL (150-450); RED BLOOD COUNT 4.29 10^6/uL (4.00-5.40); WHITE BLOOD COUNT 5.3 10^3/uL (4.0-10.0)
[2022-10-22 13:23] LABS: APPEARANCE, URINE MANUAL HAZY (CLEAR); COLOR, URINE MANUAL YELLOW (YELLOW)
[2022-10-22 13:26] LABS: BILIRUBIN, URINE MANUAL NEGATIVE (NEGATIVE); BLOOD URINE MANUAL TRACE (NEGATIVE); GLUCOSE, URINE (UA) MANUAL NEGATIVE (NEGATIVE); KETONE, URINE MANUAL NEGATIVE (NEGATIVE); LEUKOCYTE ESTERASE, URINE MAN NEGATIVE (NEGATIVE); NITRITE, URINE MANUAL NEGATIVE (NEGATIVE); PROTEIN, URINE MANUAL 1+ mg/dL (NEGATIVE); UROBILINOGEN, URINE MANUAL NORMAL (NORMAL)
[2022-10-22 13:42] LABS: BACTERIA, URINE LARGE AMOUNT; SQUAMOUS EPITHELIAL CELL URINE MOD AMOUNT /hpf (SMALL AMT); TRANSITIONAL EPI CELLS, URINE SMALL AMOUNT /hpf; WBC, URINE 20-30 /hpf (0-3)
[2022-10-22 13:43] LABS: IRON (FE) 45 UG/DL (50-170); PERCENT SATURATION 15.4 % (13.2-45.0); RHEUMATOID FACTOR QUANT < 3.5 IU/ML (<14); TOTAL IRON BINDING CAPACITY 293 UG/DL (250-425)
[2022-10-22 13:44] LABS: ALBUMIN 3.2 G/DL (3.2-5.2); ALKALINE PHOSPHATASE 50 U/L (46-116); ALT/SGPT 26 U/L (7.0-40); AST/SGOT 19 U/L (<34); BILIRUBIN,TOTAL < 0.2 MG/DL (0.3-1.2); BLOOD UREA NITROGEN 22 MG/DL (9-23); CALCIUM LEVEL 8.8 MG/DL (8.3-10.6); CARBON DIOXIDE LEVEL 32 MMOL/L (20-31); CHLORIDE LEVEL 101 MMOL/L (98-107); CREATININE FOR GFR 0.82 MG/DL (0.55-1.30); FERRITIN 43.8 NG/ML (7.3-270.7); GLOMERULAR FILTRATION RATE > 60.0 (>45); GLUCOSE, FASTING 165 MG/DL (74-106); POTASSIUM SERUM 4.8 MMOL/L (3.5-5.1); SODIUM LEVEL 138 MMOL/L (136-145); TOTAL 25(OH) VITAMIN D 44.5 NG/ML (20.0-100.0); TOTAL PROTEIN 6.4 G/DL (5.7-8.2); VITAMIN B12 LEVEL 530 PG/ML (211-911)
[2022-10-22 13:58] LABS: ERYTHROCYTE SEDIMENTATION RATE 39 mm/hr (0-30)
[2022-10-22 15:47] LABS: FOLATE 17.29 NG/ML (>5.4)
[2022-10-24 23:07] LABS: ANA (HEP2) Negative (.); CYCLIC CITRULLINATED PEPTIDE 17 units (0-19); IgG P18 AB Absent (.); IgG P23 AB Absent (.); IgG P28 AB Absent (.); IgG P30 AB Absent (.); IgG P39 AB Absent (.); IgG P41 AB Present (.); IgG P45 AB Absent (.); IgG P66 AB Absent (.); IgG P93 AB Absent (.); IgM P23 AB Absent (.); IgM P39 AB Absent (.); IgM P41 AB Absent (.); LYME IgG WB INTERPRETATION Negative (.); LYME IgM WB INTERPRETATION Negative (.)
[2022-10-25 17:07] LABS: VITAMIN B6,PYRIDOXAL PHOSPHATE 38.6 ug/L (3.4-65.2)
== END ==
LOC: M WUC 09:30
PROVIDERS: ATTEND Physician Assistant
DX: R53.83 Other fatigue (principal); M25.562 Pain in left knee; Z96.652 Presence of left artificial knee joint; M79.89 Other specified soft tissue disorders

== ENCOUNTER → 2022-12-18 | Outpatient (REF) | payer MEDICARE, BC, OTHER | LOC: M LAB REF 16:58 | PROVIDERS: ATTEND Physician Assistant | DX: R53.83 Other fatigue (principal) ==

== ENCOUNTER → 2022-12-19 | Outpatient (CLI) | payer MEDICARE, BC, OTHER | LOC: M WUC 11:36 | PROVIDERS: ATTEND Physician Assistant | DX: S20.229A Contusion of unspecified back wall of thorax, initial encounter (principal); S30.0XXA Contusion of lower back and pelvis, initial encounter; Z98.1 Arthrodesis status; M85.88 Other specified disorders of bone density and structure, other site; M43.16 Spondylolisthesis, lumbar region; I70.0 Atherosclerosis of aorta; M47.816 Spondylosis without myelopathy or radiculopathy, lumbar region; X58.XXXA Exposure to other specified factors, initial encounter; Y92.9 Unspecified place or not applicable; Y93.9 Activity, unspecified; Y99.9 Unspecified external cause status ==

== ENCOUNTER → 2023-02-04 | Outpatient (REF) | payer MEDICARE, BC, OTHER | LOC: M LAB REF 17:05 | PROVIDERS: ATTEND Family Medicine | DX: N76.0 Acute vaginitis (principal) ==

== ENCOUNTER → 2023-02-05 | Outpatient (CLI) | payer MEDICARE, BC, OTHER ==
[2023-02-06 06:08] LABS: HSV TYPE I IgG SPECIFIC >62.20 index (0.00-0.90); HSV TYPE II IgG SPECIFIC <0.91 index (0.00-0.90)
== END ==
LOC: M PLALAB 11:31
PROVIDERS: ATTEND Family Medicine
DX: N76.0 Acute vaginitis (principal)

== ENCOUNTER → 2023-02-26 | Outpatient (CLI) | payer MEDICARE, BC, OTHER ==
[~2023-02-26] MED LIST changes: +FLUT50SP17 NARES; -FLUTISP NARES
== END ==
LOC: M RAD 13:38
PROVIDERS: ATTEND Physician Assistant
DX: S09.90XA Unspecified injury of head, initial encounter (principal); I65.23 Occlusion and stenosis of bilateral carotid arteries; M47.812 Spondylosis without myelopathy or radiculopathy, cervical region; X58.XXXA Exposure to other specified factors, initial encounter; Y93.9 Activity, unspecified; Y92.9 Unspecified place or not applicable; Y99.9 Unspecified external cause status

== ENCOUNTER → 2023-03-12 | Outpatient (REF) | payer MEDICARE, BC, OTHER ==
[2023-03-12 18:27] LABS: APPEARANCE, URINE CLEAR (CLEAR); BACTERIA, URINE AUTO NEGATIVE (NEGATIVE); BILIRUBIN, URINE AUTO NEGATIVE (NEGATIVE); BLOOD, URINE BLOOD NEGATIVE (NEGATIVE); COLOR, URINE YELLOW (YELLOW); GLUCOSE, URINE (UA) AUTO NEGATIVE (NEGATIVE); KETONE, URINE AUTO NEGATIVE (NEGATIVE); LEUKOCYTE ESTERASE, URINE AUTO NEGATIVE (NEGATIVE); NITRITE, URINE AUTO NEGATIVE (NEGATIVE); PROTEIN, URINE AUTO NEGATIVE (NEGATIVE); RBC, URINE AUTO 0 /HPF (0-3); SPECIFIC GRAVITY URINE AUTO 1.018 (1.002-1.035); SQUAMOUS EPITHELIAL CELL UR AU 0 /HPF (0-6); UROBILINOGEN, URINE AUTO 0.2 mg/dL (0.0-2.0); WBC, URINE AUTO 1 /HPF (0-3)
== END ==
LOC: M LAB REF 17:15
PROVIDERS: ATTEND Physician Assistant
DX: R82.71 Bacteriuria (principal)

== ENCOUNTER → 2023-04-13 | Outpatient (REF) | payer MEDICARE, BC, OTHER ==
[~2023-04-13] MED LIST changes: -LOSA100T45 PO; +LOSA100T46 PO; +POTA-298 PO; -POTA1TAB14 PO
[2023-04-13 18:18] LABS: APPEARANCE, URINE CLEAR (CLEAR); BACTERIA, URINE AUTO NEGATIVE (NEGATIVE); BILIRUBIN, URINE AUTO NEGATIVE (NEGATIVE); BLOOD, URINE BLOOD NEGATIVE (NEGATIVE); COLOR, URINE STRAW (YELLOW); GLUCOSE, URINE (UA) AUTO NEGATIVE (NEGATIVE); KETONE, URINE AUTO NEGATIVE (NEGATIVE); LEUKOCYTE ESTERASE, URINE AUTO NEGATIVE (NEGATIVE); NITRITE, URINE AUTO NEGATIVE (NEGATIVE); PROTEIN, URINE AUTO NEGATIVE (NEGATIVE); RBC, URINE AUTO 0 /HPF (0-3); SPECIFIC GRAVITY URINE AUTO 1.006 (1.002-1.035); SQUAMOUS EPITHELIAL CELL UR AU 0 /HPF (0-6); UROBILINOGEN, URINE AUTO 0.2 mg/dL (0.0-2.0); WBC, URINE AUTO 0 /HPF (0-3)
== END ==
LOC: M LAB REF 16:59
PROVIDERS: ATTEND Physician Assistant
DX: R35.0 Frequency of micturition (principal)

== ENCOUNTER 2023-06-03 17:08 | Emergency (ER) | payer MEDICARE, BC, OTHER ==
[~2023-06-03] VITALS: Ht 160 cm; Wt 82.3 kg
[~2023-06-03 17:08] MED LIST changes: -ROPI4TAB3 PO; +ROPI4TAB36 PO
[2023-06-03] MEDS ORDERED: MORPHINE 4 MG/ML 1ML VIAL IV ONE ×2 (19:05→22:00)
[2023-06-03 20:07] LABS: BASO % 0.4 % (0.0-1.0); EOS # 0.3 10^3/uL (0.0-0.5); EOS % 4.6 % (0.0-3.0); HEMATOCRIT 37.4 % (36.0-47.0); HEMOGLOBIN 12.3 g/dl (12.0-15.5); LYMPH # 2.2 10^3/uL (1.5-5.0); MEAN CORPUSCULAR HEMOGLOBIN 28.3 pg (27.0-33.0); MEAN CORPUSCULAR HGB CONC 32.9 g/dl (32.0-36.5); MONO # 0.5 10^3/uL (0.0-0.8); MONO % 7.7 % (2.0-8.0); NEUTROPHILS # 3.8 10^3/uL (1.5-8.5); PLATELET COUNT, AUTOMATED 188 10^3/uL (150-450); RED BLOOD COUNT 4.35 10^6/uL (4.00-5.40); WHITE BLOOD COUNT 6.9 10^3/uL (4.0-10.0)
[2023-06-03 20:30] LABS: BLOOD UREA NITROGEN 23 MG/DL (9-23); CALCIUM LEVEL 8.5 MG/DL (8.3-10.6); CARBON DIOXIDE LEVEL 31 MMOL/L (20-31); CHLORIDE LEVEL 105 MMOL/L (98-107); CREATININE FOR GFR 0.95 MG/DL (0.55-1.30); GLOMERULAR FILTRATION RATE > 60.0 (>45); GLUCOSE, FASTING 83 MG/DL (74-106); POTASSIUM SERUM 3.9 MMOL/L (3.5-5.1); SODIUM LEVEL 141 MMOL/L (136-145)
[2023-06-03 22:02] VITALS: BP 120/58; TEMP 96.8; O2SAT 94
[2023-06-03 22:04] VITALS: O2SAT 95
== END 2023-06-03 22:16 | disposition home or self-care (01) ==
LOC: M ED 17:08
DX: S30.0XXA Contusion of lower back and pelvis, initial encounter (principal); W10.8XXA Fall (on) (from) other stairs and steps, initial encounter; Y93.89 Activity, other specified; M51.36 Other intervertebral disc degeneration, lumbar region; E11.9 Type 2 diabetes mellitus without complications; F11.20 Opioid dependence, uncomplicated; Z98.84 Bariatric surgery status; Z79.899 Other long term (current) drug therapy; Z91.041 Radiographic dye allergy status; Z91.040 Latex allergy status; Z88.6 Allergy status to analgesic agent; Z88.8 Allergy status to other drugs, medicaments and biological substances

== ENCOUNTER 2023-07-08 13:49 | Observation (INO) | payer MEDICARE, BC, OTHER ==
[~2023-07-08] VITALS: Ht 160 cm; Wt 78.5 kg
[~2023-07-08 13:49] MED LIST changes: -GABA-283 PO; +GABA-284 PO; -PREG150C PO; +PREG150C2 PO; -PREG200C PO; +PREG200C2 PO
[2023-07-08] MEDS ORDERED: diphenhydrAMINE 50MG/ML VIAL IV STA (14:33)
[2023-07-08] MEDS ORDERED: FAMOTIDINE IV BAG 20 MG in IV 1 EA IV ONE (14:35)
[2023-07-08] MEDS ORDERED: methylPREDNISolone 125MG 2ML VIAL IV ONE (14:35)
[2023-07-08 15:09] LABS: BASO % 0.6 % (0.0-1.0); EOS # 0.1 10^3/uL (0.0-0.5); EOS % 2.1 % (0.0-3.0); HEMATOCRIT 37.9 % (36.0-47.0); HEMOGLOBIN 12.8 g/dl (12.0-15.5); LYMPH # 1.3 10^3/uL (1.5-5.0); MEAN CORPUSCULAR HEMOGLOBIN 29.2 pg (27.0-33.0); MEAN CORPUSCULAR HGB CONC 33.8 g/dl (32.0-36.5); MEAN CORPUSCULAR VOLUME 86.5 fl (80.0-96.0); MONO # 0.4 10^3/uL (0.0-0.8); MONO % 6.1 % (2.0-8.0); NEUTROPHILS # 4.8 10^3/uL (1.5-8.5); NEUTROPHILS % 70.8 % (36.0-66.0); PLATELET COUNT, AUTOMATED 160 10^3/uL (150-450); RED BLOOD COUNT 4.38 10^6/uL (4.00-5.40); WHITE BLOOD COUNT 6.7 10^3/uL (4.0-10.0)
[2023-07-08 15:15] LABS: CK-MB VALUE MASS 6.5 NG/ML (<3.6); LIPASE 34 U/L (12-53)
[2023-07-08 15:17] LABS: ALBUMIN 3.2 G/DL (3.2-5.2); ALKALINE PHOSPHATASE 49 U/L (46-116); ALT/SGPT 44 U/L (7.0-40); AST/SGOT 30 U/L (<34); BILIRUBIN,DIRECT < 0.1 MG/DL (<0.4); BILIRUBIN,TOTAL 0.2 MG/DL (0.3-1.2); TOTAL PROTEIN 6.2 G/DL (5.7-8.2)
[2023-07-08 15:19] LABS: THYROID STIMULATING HORMONE 1.285 uIU/ML (0.55-4.78)
[2023-07-08 15:20] LABS: CPK CREATINE PHOSPHOKINASE 70 U/L (34-145); FREE T4 0.75 NG/DL (0.89-1.76); MB/CK RELATIVE INDEX 9.28 (< OR =4)
[2023-07-08 15:23] LABS: RSV AMPLIFICATION NEGATIVE (NEGATIVE)
[2023-07-08 15:56] LABS: INR 0.97; PARTIAL THROMBOPLASTIN TIME 26.8 SECONDS (24.8-34.2); PROTHROMBIN TIME 12.6 SECONDS (12.5-14.5)
[2023-07-08 16:31] LABS: CK-MB VALUE MASS 6.5 NG/ML (<3.6)
[2023-07-08 16:32] LABS: MB/CK RELATIVE INDEX 12.03 (< OR =4)
[2023-07-08 17:09] LABS: D-DIMER QUANT 1.08 ug/mL (<0.5)
[2023-07-08] MEDS ORDERED: MED REC IN PROGRESS XX SCH (18:00)
[2023-07-08] MEDS ORDERED: TOPI-254 PO (18:15)
[2023-07-08] MEDS ORDERED: DULA3PEN SUBQ (18:15)
[2023-07-08] MEDS ORDERED: FURO40TA2 PO (18:15)
[2023-07-08] MEDS ORDERED: TRAZ-257 PO (18:15)
[2023-07-08] MEDS ORDERED: COLE625T PO (18:15)
[2023-07-08] MEDS ORDERED: XTAM9CAP PO (18:15)
[2023-07-08] MEDS ORDERED: IMMU1CHW PO (18:15)
[2023-07-08] MEDS ORDERED: LORA-1041 PO (18:15)
[2023-07-08] MEDS ORDERED: LOSA25TA13 PO (18:15)
[2023-07-08] MEDS ORDERED: OCUVTAB8 PO (18:15)
[2023-07-08] MEDS ORDERED: ALBU8.5H INH (18:23)
[2023-07-08] MEDS ORDERED: HOME MED LIST COMPLETE! XX SCH (18:25)
[2023-07-08] MEDS ORDERED: KETOROLAC 30 MG/ML 1ML VIAL IV ONE (19:40)
[2023-07-08] MEDS: ALBUTEROL SULFATE 2.5MG/0.5ML INH NEB SOLN NEB SCH (20:49)
[2023-07-08] MEDS ORDERED: CARVedilol 6.25 MG TAB PO SCH (21:00)
[2023-07-08] MEDS: PREGABALIN 100 MG CAP (LYRICA) PO SCH (21:52)
[2023-07-08] MEDS: OMEPRAZOLE 20MG CAP PO SCH (21:54)
[2023-07-08] MEDS: oxyCODONE 5MG TAB PO SCH (21:55)
[2023-07-08] MEDS: TOPIRAMATE (TopAMAX) 25 MG TAB PO SCH (21:56)
[2023-07-08] MEDS: BACLOFEN 10 MG TAB PO SCH (21:56)
[2023-07-08] MEDS: traZODone 100 MG TAB PO SCH (21:56)
[2023-07-08] MEDS: LIDOCAINE 5% (LIDODERM) PATCH TD SCH (21:57)
[2023-07-08] MEDS: methylPREDNISolone 40MG 1ML VIAL IV SCH (21:57)
[2023-07-08 22:34] VITALS: BP 120/50; TEMP 98.1; O2SAT 94
[2023-07-08] MEDS ORDERED: oxyCODONE 10 MG CR TAB PO ONE (23:00)
[2023-07-08] MEDS ORDERED: COLESEVELAM 625 MG TAB (WELCHOL) PO ONE (23:00)
[2023-07-08] MEDS: MESALAMINE 250 MG CR CAP PO SCH (23:37)
[2023-07-08] MEDS: SUCRALFATE SUSP 1GM/10ML UD PO SCH (23:38)
[2023-07-09] MEDS: ALBUTEROL SULFATE 2.5MG/0.5ML INH NEB SOLN NEB SCH ×2 (01:36→07:12)
[2023-07-09] MEDS ORDERED: ALBUTEROL SULFATE 2.5MG/0.5ML INH NEB SOLN NEB SCH (02:00)
[2023-07-09 02:17] VITALS: BP 104/56; O2SAT 93
[2023-07-09] MEDS: SUCRALFATE SUSP 1GM/10ML UD PO SCH ×4 (04:35→17:44)
[2023-07-09 05:46] VITALS: BP 104/55; TEMP 97.3; O2SAT 94
[2023-07-09] MEDS ORDERED: oxyCODONE 10 MG CR TAB PO SCH (09:00)
[2023-07-09] MEDS ORDERED: FUROSEMIDE 40 MG TAB PO SCH (09:00)
[2023-07-09] MEDS: TOPIRAMATE (TopAMAX) 25 MG TAB PO SCH ×2 (09:47→21:19)
[2023-07-09] MEDS: MESALAMINE 250 MG CR CAP PO SCH ×2 (09:47→21:20)
[2023-07-09] MEDS: PREGABALIN 100 MG CAP (LYRICA) PO SCH ×3 (09:47→21:19)
[2023-07-09] MEDS: LOSARTAN 25 MG TAB PO SCH (09:47)
[2023-07-09] MEDS: BACLOFEN 10 MG TAB PO SCH ×3 (09:47→21:19)
[2023-07-09] MEDS: ENOXAPARIN 40MG/0.4ML SYRINGE (J1650 PER 10MG) SC SCH (09:48)
[2023-07-09] MEDS: COLESEVELAM 625 MG TAB (WELCHOL) PO SCH ×2 (09:48→21:18)
[2023-07-09] MEDS: LORATADINE 10 MG TAB PO SCH (09:48)
[2023-07-09] MEDS: OMEPRAZOLE 20MG CAP PO SCH ×2 (09:48→21:18)
[2023-07-09] MEDS: methylPREDNISolone 40MG 1ML VIAL IV SCH ×2 (09:49→21:20)
[2023-07-09] MEDS ORDERED: PRED20TA PO (10:02)
[2023-07-09] MEDS ORDERED: LIDO5TD TD (10:02)
[2023-07-09] MEDS: oxyCODONE 5MG TAB PO SCH ×2 (10:02→21:20)
[2023-07-09] MEDS: ALBUTEROL 90 MCG/ACT 8GM HFA INHALER INH SCH ×2 (10:56→19:17)
[2023-07-09] MEDS ORDERED: LIDO5OIN19 TOP (12:09)
[2023-07-09 14:00] VITALS: BP 129/61; TEMP 97.7; O2SAT 96
[2023-07-09] MEDS ORDERED: FUROSEMIDE 40 MG TAB PO ONE (18:15)
[2023-07-09 20:40] VITALS: BP 128/61; TEMP 97.9; O2SAT 98
[2023-07-09] MEDS: traZODone 100 MG TAB PO SCH (21:20)
[2023-07-09] MEDS: LIDOCAINE 5% (LIDODERM) PATCH TD SCH (21:23)
[2023-07-10] MEDS: SUCRALFATE SUSP 1GM/10ML UD PO SCH ×3 (00:44→12:00)
[2023-07-10] MEDS: ALBUTEROL 90 MCG/ACT 8GM HFA INHALER INH SCH ×2 (01:46→07:02)
[2023-07-10 04:50] VITALS: BP 101/50; TEMP 97.2; O2SAT 93
[2023-07-10 06:07] LABS: BASO % 0.1 % (0.0-1.0); HEMATOCRIT 38.3 % (36.0-47.0); HEMOGLOBIN 12.6 g/dl (12.0-15.5); LYMPH # 0.9 10^3/uL (1.5-5.0); LYMPH % 9.2 % (24.0-44.0); MEAN CORPUSCULAR HEMOGLOBIN 28.5 pg (27.0-33.0); MEAN CORPUSCULAR HGB CONC 32.9 g/dl (32.0-36.5); MEAN CORPUSCULAR VOLUME 86.7 fl (80.0-96.0); MONO # 0.2 10^3/uL (0.0-0.8); NEUTROPHILS % 88.2 % (36.0-66.0); PLATELET COUNT, AUTOMATED 174 10^3/uL (150-450); RED BLOOD COUNT 4.42 10^6/uL (4.00-5.40); WHITE BLOOD COUNT 10.2 10^3/uL (4.0-10.0)
[2023-07-10 06:40] LABS: ALBUMIN 2.8 G/DL (3.2-5.2); ALKALINE PHOSPHATASE 49 U/L (46-116); ALT/SGPT 28 U/L (7.0-40); AST/SGOT < 8 U/L (<34); BILIRUBIN,TOTAL < 0.2 MG/DL (0.3-1.2); BLOOD UREA NITROGEN 27 MG/DL (9-23); CALCIUM LEVEL 8.8 MG/DL (8.3-10.6); CARBON DIOXIDE LEVEL 23 MMOL/L (20-31); CHLORIDE LEVEL 109 MMOL/L (98-107); CREATININE FOR GFR 0.68 MG/DL (0.55-1.30); GLOMERULAR FILTRATION RATE > 60.0 (>45); GLUCOSE, FASTING 236 MG/DL (74-106); POTASSIUM SERUM 3.9 MMOL/L (3.5-5.1); SODIUM LEVEL 141 MMOL/L (136-145); TOTAL PROTEIN 5.9 G/DL (5.7-8.2)
[2023-07-10] MEDS: BACLOFEN 10 MG TAB PO SCH (08:37)
[2023-07-10] MEDS: MESALAMINE 250 MG CR CAP PO SCH (08:37)
[2023-07-10] MEDS: PREGABALIN 100 MG CAP (LYRICA) PO SCH (08:37)
[2023-07-10] MEDS: COLESEVELAM 625 MG TAB (WELCHOL) PO SCH (08:37)
[2023-07-10] MEDS: TOPIRAMATE (TopAMAX) 25 MG TAB PO SCH (08:37)
[2023-07-10] MEDS: LORATADINE 10 MG TAB PO SCH (08:37)
[2023-07-10] MEDS: OMEPRAZOLE 20MG CAP PO SCH (08:38)
[2023-07-10] MEDS: ENOXAPARIN 40MG/0.4ML SYRINGE (J1650 PER 10MG) SC SCH (08:38)
[2023-07-10] MEDS: methylPREDNISolone 40MG 1ML VIAL IV SCH (08:38)
[2023-07-10] MEDS: oxyCODONE 5MG TAB PO SCH (08:39)
[2023-07-10 08:42] VITALS: BP 127/61
[2023-07-10] MEDS: LOSARTAN 25 MG TAB PO SCH (08:42)
[2023-07-10] MEDS ORDERED: FUROSEMIDE 40 MG TAB PO SCH (09:00)
[2023-07-10] MEDS ORDERED: VENTAER INH ×2 (11:23→12:06)
[2023-07-10] MEDS ORDERED: BREO1INH3 PO ×2 (11:23→12:06)
== END 2023-07-10 14:14 | disposition home or self-care (01) ==
LOC: M ED 13:49 → M ED INP 13:50 → ENRESERV 21:19 → M MSPAV 22:34
PROVIDERS: ADMIT Internal Medicine Nephrology; ATTEND Internal Medicine Nephrology
DX: J45.901 Unspecified asthma with (acute) exacerbation (principal); R07.89 Other chest pain; M94.0 Chondrocostal junction syndrome [Tietze]; G89.4 Chronic pain syndrome; Z79.891 Long term (current) use of opiate analgesic; E11.42 Type 2 diabetes mellitus with diabetic polyneuropathy; I10 Essential (primary) hypertension; K50.90 Crohn's disease, unspecified, without complications; M35.00 Sjogren syndrome, unspecified; J30.2 Other seasonal allergic rhinitis; K21.9 Gastro-esophageal reflux disease without esophagitis; K83.8 Other specified diseases of biliary tract; E66.01 Morbid (severe) obesity due to excess calories; Z98.84 Bariatric surgery status; G56.03 Carpal tunnel syndrome, bilateral upper limbs; R39.81 Functional urinary incontinence; R19.7 Diarrhea, unspecified; N20.0 Calculus of kidney; G43.909 Migraine, unspecified, not intractable, without status migrainosus; Z79.899 Other long term (current) drug therapy; Z79.82 Long term (current) use of aspirin; Z91.041 Radiographic dye allergy status; Z88.5 Allergy status to narcotic agent; Z91.040 Latex allergy status; Z88.8 Allergy status to other drugs, medicaments and biological substances
CPT/HCPCS: 36415; 71045; 71250; 78582; 80047; 80053; 80076; 82550; 82553; 83690; 83880; 84439; 84443; 84484; 85025; 85379; 85610; 85730; 87631; 93005; 93041; 93306; 93970; 94640; 94760; 96372; 96374; 96375; 96376; 99285; A9540; A9567; G0378; J1650; J1885; J2920

== ENCOUNTER → 2023-09-28 | Outpatient (REF) | payer MEDICARE, BC, OTHER ==
[~2023-09-28] MED LIST changes: +COLE625T PO; +DULA3PEN SUBQ; +FURO40TA2 PO; +IMMU1CHW PO; +LIDO5OIN19 TOP; +LIDO5TD TD; +LORA-1041 PO; +OCUVTAB8 PO; +PRED20TA PO; +TOPI-254 PO; +TRAZ-257 PO; +VENTAER INH; +XTAM9CAP PO
== END ==
LOC: M LAB REF 21:11
PROVIDERS: ATTEND Student in an Organized Health Care Education/Training Program
DX: R30.0 Dysuria (principal)

== ENCOUNTER → 2023-10-01 | Outpatient (CLI) | payer MEDICARE, BC, OTHER | LOC: M RAD 09:35 | PROVIDERS: ATTEND Physician Assistant | DX: I73.9 Peripheral vascular disease, unspecified (principal); S91.302S Unspecified open wound, left foot, sequela; M19.072 Primary osteoarthritis, left ankle and foot ==

== ENCOUNTER → 2023-11-18 | Outpatient (CLI) | payer MEDICARE, BC, OTHER ==
[~2023-11-18] MED LIST changes: -EFFE150C2 PO; +EFFE150C3 PO; -FLUT50SP17 NARES; +FLUTISP NARES; +TOPI-21 PO; -TOPI-254 PO
== END ==
LOC: M SLEEP 20:00
PROVIDERS: ATTEND Nurse Practitioner Adult Health
DX: G47.33 Obstructive sleep apnea (adult) (pediatric) (principal)

== ENCOUNTER → 2023-12-18 | Outpatient (REF) | payer MEDICARE, OTHER, BC | LOC: M LAB REF 21:17 | PROVIDERS: ATTEND Physician Assistant | DX: N30.00 Acute cystitis without hematuria (principal) ==

== ENCOUNTER → 2023-12-23 | Outpatient (CLI) | payer MEDICARE, BC, OTHER | LOC: M SLEEP 20:00 | PROVIDERS: ATTEND Nurse Practitioner Adult Health | DX: G47.33 Obstructive sleep apnea (adult) (pediatric) (principal); G47.31 Primary central sleep apnea ==

== ENCOUNTER 2024-03-21 03:44 | Observation (INO) | payer MEDICARE, OTHER ==
[~2024-03-21] VITALS: Ht 160 cm; Wt 82.0 kg
[~2024-03-21 03:44] MED LIST changes: -ROPI2TAB PO; +ROPI2TAB20 PO
[2024-03-21] MEDS: NS 1,000 ML IV ONE (05:21)
[2024-03-21 05:29] LABS: BASO # 0.1 10^3/uL (0.0-0.2); BASO % 0.8 % (0.0-1.0); EOS # 0.2 10^3/uL (0.0-0.5); EOS % 3.6 % (0.0-3.0); HEMATOCRIT 38.4 % (36.0-47.0); HEMOGLOBIN 12.5 g/dl (12.0-15.5); LYMPH # 1.9 10^3/uL (1.5-5.0); LYMPH % 30.4 % (24.0-44.0); MEAN CORPUSCULAR HEMOGLOBIN 28.4 pg (27.0-33.0); MEAN CORPUSCULAR HGB CONC 32.6 g/dl (32.0-36.5); MEAN CORPUSCULAR VOLUME 87.3 fl (80.0-96.0); MONO # 0.6 10^3/uL (0.0-0.8); MONO % 9.4 % (2.0-8.0); NEUTROPHILS # 3.4 10^3/uL (1.5-8.5); NEUTROPHILS % 55.5 % (36.0-66.0); PLATELET COUNT, AUTOMATED 190 10^3/uL (150-450); WHITE BLOOD COUNT 6.2 10^3/uL (4.0-10.0)
[2024-03-21 05:36] LABS: INR 0.92; PARTIAL THROMBOPLASTIN TIME 22.3 SECONDS (24.8-34.2); PROTHROMBIN TIME 12.1 SECONDS (12.5-14.5)
[2024-03-21 05:49] LABS: LIPASE 30 U/L (12-53)
[2024-03-21 05:50] LABS: CPK CREATINE PHOSPHOKINASE 86 U/L (34-145)
[2024-03-21 05:51] LABS: ALBUMIN 3.4 G/DL (3.2-5.2); ALKALINE PHOSPHATASE 45 U/L (46-116); ALT/SGPT 36 U/L (7.0-40); AST/SGOT 27 U/L (<34); BILIRUBIN,DIRECT < 0.1 MG/DL (<0.4); BILIRUBIN,TOTAL 0.2 MG/DL (0.3-1.2); BLOOD UREA NITROGEN 26 MG/DL (9-23); CALCIUM LEVEL 8.8 MG/DL (8.3-10.6); CARBON DIOXIDE LEVEL 28 MMOL/L (20-31); CHLORIDE LEVEL 107 MMOL/L (98-107); CK-MB VALUE MASS 5.2 NG/ML (<3.6); CREATININE FOR GFR 0.95 MG/DL (0.55-1.30); GLOMERULAR FILTRATION RATE > 60.0 (>45); GLUCOSE, FASTING 94 MG/DL (74-106); MB/CK RELATIVE INDEX 6.04 (< OR =4); POTASSIUM SERUM 3.8 MMOL/L (3.5-5.1); SODIUM LEVEL 143 MMOL/L (136-145); TOTAL PROTEIN 6.4 G/DL (5.7-8.2)
[2024-03-21] MEDS ORDERED: SUMA50TA2 PO (06:06)
[2024-03-21 06:54] LABS: MB/CK RELATIVE INDEX 6.57 (< OR =4)
[2024-03-21] MEDS: LIDOCAINE 2% 5ML JELLY UROJET TOP ONE (08:21)
[2024-03-21] MEDS: cefTRIAXone SOD 1 GM in D5W MINI-BAG PLUS 50 ML IV ONE (08:23)
[2024-03-21] MEDS ORDERED: XTAM9CAP PO (10:35)
[2024-03-21] MEDS ORDERED: ALBU8.5H INH (10:35)
[2024-03-21] MEDS ORDERED: MV-M1TAB29 PO (10:35)
[2024-03-21] MEDS ORDERED: HOME MED LIST COMPLETE! XX SCH (10:40)
[2024-03-21] MEDS ORDERED: ALBUTEROL SULFATE 2.5MG/0.5ML INH NEB SOLN NEB PRN (12:50)
[2024-03-21 12:55] VITALS: BP 152/80; TEMP 97.5; O2SAT 96
[2024-03-21] MEDS ORDERED: PANT40TA29 PO (13:38)
[2024-03-21] MEDS: POTASSIUM CHLORIDE 10MEQ SR TABLET PO SCH (14:37)
[2024-03-21] MEDS: LORATADINE 10 MG TAB PO SCH (14:37)
[2024-03-21] MEDS: CARVedilol 6.25 MG TAB PO SCH (14:37)
[2024-03-21] MEDS: oxyCODONE 5MG TAB PO PRN (14:40)
[2024-03-21] MEDS: OCUVITE 1 TAB PO SCH (14:41)
[2024-03-21 15:00] VITALS: BP_SYST 146; BP_SYST 151; BP_SYST 178; BP_DIAS 75; BP_DIAS 76
[2024-03-21] MEDS: PREGABALIN 100 MG CAP (LYRICA) PO SCH (16:14)
[2024-03-21 20:00] VITALS: BP 125/59; TEMP 97.7; O2SAT 97
[2024-03-21] MEDS: traZODone 50 MG TAB PO SCH (20:10)
[2024-03-21] MEDS: PANTOPRAZOLE 40MG TAB (PROTONIX) PO SCH (20:10)
[2024-03-21] MEDS: COLESEVELAM 625 MG TAB (WELCHOL) PO SCH (20:10)
[2024-03-21] MEDS: DULoxetine 30MG CAPSULE (CYMBALTA) PO SCH (20:10)
[2024-03-21] MEDS ORDERED: NON-FORMULARY 1 EA EA PO SCH (21:00)
[2024-03-22 05:58] VITALS: BP 137/95; TEMP 97.3; O2SAT 95
[2024-03-22] MEDS: ACETAMINOPHEN TAB 650MG DOSE (2X325MG) PO ONE (06:49)
[2024-03-22 07:00] LABS: BASO % 0.6 % (0.0-1.0); EOS # 0.2 10^3/uL (0.0-0.5); EOS % 4.4 % (0.0-3.0); HEMATOCRIT 36.5 % (36.0-47.0); LYMPH # 1.7 10^3/uL (1.5-5.0); LYMPH % 35.2 % (24.0-44.0); MEAN CORPUSCULAR HEMOGLOBIN 28.4 pg (27.0-33.0); MEAN CORPUSCULAR HGB CONC 32.9 g/dl (32.0-36.5); MEAN CORPUSCULAR VOLUME 86.5 fl (80.0-96.0); MONO # 0.4 10^3/uL (0.0-0.8); MONO % 8.7 % (2.0-8.0); NEUTROPHILS # 2.4 10^3/uL (1.5-8.5); NEUTROPHILS % 50.9 % (36.0-66.0); PLATELET COUNT, AUTOMATED 158 10^3/uL (150-450); RED BLOOD COUNT 4.22 10^6/uL (4.00-5.40); WHITE BLOOD COUNT 4.7 10^3/uL (4.0-10.0)
[2024-03-22 07:27] LABS: BLOOD UREA NITROGEN 23 MG/DL (9-23); CALCIUM LEVEL 8.8 MG/DL (8.3-10.6); CARBON DIOXIDE LEVEL 29 MMOL/L (20-31); CHLORIDE LEVEL 111 MMOL/L (98-107); CREATININE FOR GFR 0.89 MG/DL (0.55-1.30); GLOMERULAR FILTRATION RATE > 60.0 (>45); GLUCOSE, FASTING 91 MG/DL (74-106); POTASSIUM SERUM 4.5 MMOL/L (3.5-5.1); SODIUM LEVEL 145 MMOL/L (136-145)
[2024-03-22] MEDS: ONDANSETRON 4MG 2ML VIAL IV PRN (08:52)
[2024-03-22] MEDS: LOSARTAN 25 MG TAB PO SCH (10:56)
[2024-03-22 14:00] VITALS: BP 122/59; TEMP 97.7; O2SAT 97
[2024-03-22 19:44] VITALS: BP 148/72; TEMP 98.2; O2SAT 96
[2024-03-22] MEDS ORDERED: ACETAMINOPHEN TAB 650MG DOSE (2X325MG) PO PRN (23:10)
[2024-03-23 06:17] VITALS: BP 141/77; TEMP 97.9; O2SAT 95
[2024-03-23] MEDS ORDERED: XTAMPZA 9 MG PO SCH (09:00)
[2024-03-23 09:52] LABS: BASO % 0.5 % (0.0-1.0); EOS # 0.1 10^3/uL (0.0-0.5); EOS % 0.9 % (0.0-3.0); HEMATOCRIT 38.4 % (36.0-47.0); HEMOGLOBIN 12.6 g/dl (12.0-15.5); LYMPH # 1.1 10^3/uL (1.5-5.0); LYMPH % 19.6 % (24.0-44.0); MEAN CORPUSCULAR HEMOGLOBIN 27.8 pg (27.0-33.0); MEAN CORPUSCULAR HGB CONC 32.8 g/dl (32.0-36.5); MEAN CORPUSCULAR VOLUME 84.8 fl (80.0-96.0); MONO # 0.3 10^3/uL (0.0-0.8); MONO % 5.5 % (2.0-8.0); NEUTROPHILS % 73.3 % (36.0-66.0); PLATELET COUNT, AUTOMATED 175 10^3/uL (150-450); RED BLOOD COUNT 4.53 10^6/uL (4.00-5.40); WHITE BLOOD COUNT 5.5 10^3/uL (4.0-10.0)
[2024-03-23 10:00] VITALS: BP_SYST 133; BP_SYST 139; BP_DIAS 70; BP_DIAS 96
[2024-03-23 10:19] LABS: BLOOD UREA NITROGEN 19 MG/DL (9-23); CALCIUM LEVEL 9.1 MG/DL (8.3-10.6); CARBON DIOXIDE LEVEL 29 MMOL/L (20-31); CHLORIDE LEVEL 107 MMOL/L (98-107); CREATININE FOR GFR 0.84 MG/DL (0.55-1.30); GLOMERULAR FILTRATION RATE > 60.0 (>45); GLUCOSE, FASTING 129 MG/DL (74-106); POTASSIUM SERUM 3.9 MMOL/L (3.5-5.1); SODIUM LEVEL 141 MMOL/L (136-145)
[2024-03-23 10:45] VITALS: BP 133/70
== END 2024-03-23 11:18 | disposition home health service (06) ==
LOC: EDBD 03:44 → M ED 03:44 → M ED INP 10:59 → ENRESERV 11:29 → M MSPAV 12:54
PROVIDERS: ADMIT Internal Medicine Nephrology; ATTEND Internal Medicine
DX: R55 Syncope and collapse (principal); M25.572 Pain in left ankle and joints of left foot; W19.XXXA Unspecified fall, initial encounter; Y92.002 Bathroom of unspecified non-institutional (private) residence as the place of occurrence of the external cause; I95.1 Orthostatic hypotension; I10 Essential (primary) hypertension; R82.71 Bacteriuria; G89.4 Chronic pain syndrome; G62.9 Polyneuropathy, unspecified; J45.909 Unspecified asthma, uncomplicated; J98.6 Disorders of diaphragm; E11.9 Type 2 diabetes mellitus without complications; G47.00 Insomnia, unspecified; E66.01 Morbid (severe) obesity due to excess calories; F39 Unspecified mood [affective] disorder; G43.909 Migraine, unspecified, not intractable, without status migrainosus; K50.90 Crohn's disease, unspecified, without complications; M35.00 Sjogren syndrome, unspecified; K21.9 Gastro-esophageal reflux disease without esophagitis; R39.81 Functional urinary incontinence; Z98.84 Bariatric surgery status; Z79.899 Other long term (current) drug therapy; Z91.041 Radiographic dye allergy status; Z91.040 Latex allergy status; Z88.8 Allergy status to other drugs, medicaments and biological substances; Z88.5 Allergy status to narcotic agent
CPT/HCPCS: 36415; 70450; 71045; 72125; 73502; 73552; 73564; 73590; 73610; 73700; 80048; 80076; 81001; 82550; 82553; 83605; 83690; 84484; 85025; 85610; 85730; 87040; 87077; 87088; 87186; 87486; 87581; 87633; 87798; 93005; 93041; 93306; 96365; 96375; 96376; 97116; 97161; 97165; 97530; 97535; 99285; G0378; J0696; J2405

== ENCOUNTER → 2024-03-28 | Outpatient (REF) | payer MEDICARE, OTHER, BC ==
[~2024-03-28] MED LIST changes: +MV-M1TAB29 PO; +PANT40TA29 PO; +SUMA50TA2 PO
[2024-03-28 17:59] LABS: APPEARANCE, URINE CLOUDY (CLEAR); BACTERIA, URINE AUTO NEGATIVE (NEGATIVE); BILIRUBIN, URINE AUTO NEGATIVE (NEGATIVE); BLOOD, URINE BLOOD NEGATIVE (NEGATIVE); CALCIUM OXALATE CRYSTALS MODERATE; COLOR, URINE AMBER (YELLOW); GLUCOSE, URINE (UA) AUTO NEGATIVE (NEGATIVE); KETONE, URINE AUTO TRACE mg/dL (NEGATIVE); LEUKOCYTE ESTERASE, URINE AUTO NEGATIVE (NEGATIVE); NITRITE, URINE AUTO NEGATIVE (NEGATIVE); PROTEIN, URINE AUTO 1+ mg/dL (NEGATIVE); RBC, URINE AUTO 2 /HPF (0-3); SPECIFIC GRAVITY URINE AUTO 1.026 (1.002-1.035); SQUAMOUS EPITHELIAL CELL UR AU 1 /HPF (0-6); UROBILINOGEN, URINE AUTO 0.2 mg/dL (0.0-2.0); WBC, URINE AUTO 1 /HPF (0-3)
== END ==
LOC: M LAB REF 17:05
PROVIDERS: ATTEND Physician Assistant
DX: R39.198 Other difficulties with micturition (principal)

== ENCOUNTER → 2024-04-26 | Outpatient (CLI) | payer MEDICARE, OTHER, BC | LOC: M SOG 07:54 | PROVIDERS: ATTEND Physician Assistant | DX: M25.572 Pain in left ankle and joints of left foot (principal); M77.32 Calcaneal spur, left foot; M19.072 Primary osteoarthritis, left ankle and foot ==

== ENCOUNTER → 2024-06-02 | Outpatient (CLI) | payer MEDICARE, OTHER, BC | LOC: M SOG 07:56 | PROVIDERS: ATTEND Physician Assistant | DX: M25.572 Pain in left ankle and joints of left foot (principal) ==

== ENCOUNTER → 2024-06-24 | Outpatient (CLI) | payer MEDICARE, BC ==
[2024-06-24 16:20] LABS: BLOOD UREA NITROGEN 27 MG/DL (9-23); CARBON DIOXIDE LEVEL 28 MMOL/L (20-31); CHLORIDE LEVEL 106 MMOL/L (98-107); CREATININE FOR GFR 0.92 MG/DL (0.55-1.30); GLOMERULAR FILTRATION RATE > 60.0 (>45); GLUCOSE, FASTING 158 MG/DL (74-106); POTASSIUM SERUM 4.4 MMOL/L (3.5-5.1); SODIUM LEVEL 141 MMOL/L (136-145)
== END ==
LOC: M PLALAB 14:29
PROVIDERS: ATTEND Nurse Practitioner Adult Health
DX: I50.9 Heart failure, unspecified (principal)

== ENCOUNTER → 2025-08-11 | Outpatient (REF) | payer MEDICARE, BC ==
[~2025-08-11] MED LIST changes: +GABA-1490 PO; -GABA600T4 PO; -HYOS0.1259 PO; +HYOS125E2 PO; +PREG-35 PO; -PREG100CA PO
== END ==
LOC: M LAB REF 15:08
PROVIDERS: ATTEND Physician Assistant
DX: N76.0 Acute vaginitis (principal)

== ENCOUNTER → 2025-09-01 | Outpatient (REF) | payer MEDICARE, OTHER | LOC: M LAB REF 15:12 | PROVIDERS: ATTEND Family Medicine | DX: N76.0 Acute vaginitis (principal) ==

== ENCOUNTER → 2025-09-22 | Outpatient (REF) | payer MEDICARE, OTHER | LOC: M LAB REF 15:15 | PROVIDERS: ATTEND Physician Assistant | DX: N39.0 Urinary tract infection, site not specified (principal) ==